=== PATIENT | male | born 1935 | race Caucasian/White ===

== ENCOUNTER 2017-01-07 17:56 | Inpatient (IN) | payer OTHER ==
[~2017-01-07] VITALS: Ht 177.8 cm; Wt 95.0 kg
[~2017-01-07 17:56] MED LIST: CALC-354 PO; CARV12.52 PO; FURO20TA PO; GLC/500 PO; LISI-461 PO; POTA1CAP2 PO
[2017-01-07 18:23] LABS: BASO % 0.2 %; BASO ABS # 0.01 K/uL (0-0.2); COMPLETE YES; EOS % 3.1 %; HEMATOCRIT 45.9 % (42-52); IG% 0.4 %; LYMPH % 28.8 %; LYMPH ABS # 1.57 K/uL (1.2-3.4); MEAN CELL VOLUME 84.2 fL (80-100); MEAN CORPUSCULAR HEMOGLOBIN 29.4 pg (25-34); MEAN CORPUSCULAR HGB CONC 34.9 g/dl (32-36); MEAN PLATELET VOLUME 9.1 fL (7.4-10.4); MONO % 8.1 %; NEUT % 59.4 %; PLATELET COUNT 170 K/uL (130-400); RED BLOOD COUNT 5.45 M/uL (4.7-6.1); WHITE BLOOD COUNT 5.46 K/uL (4.8-10.8)
[2017-01-07 18:33] LABS: INR 0.9 (0.9-1.1); PARTIAL THROMBOPLASTIN RATIO 1.1; PROTHROMBIN TIME (PATIENT) 9.9 SECONDS (9.0-12.0)
[2017-01-07] MEDS ORDERED: LEVO25TA PO (18:36)
[2017-01-07] MEDS ORDERED: CARV25TA2 PO (18:36)
[2017-01-07] MEDS ORDERED: LISI-788 PO (18:36)
[2017-01-07] MEDS ORDERED: GLC/500 PO (18:37)
--- NOTE | 2017-01-07 18:39 | DIAGNOSTIC IMAGING REPORT ---
HEAD CT NONCONTRAST CT DOSE: 601.98 mGy.cm HISTORY: Mental status change EVALUATE ALTERED MENTAL STATUS/WEAKNESS TECHNIQUE: Multiaxial CT images of the head were performed without the use of intravenous contrast. Comparison: None. Findings: The paranasal sinuses and mastoid air cells are clear. The calvarium and skull base are intact. The ventricles and sulci are within normal limits. There is no mass, hematoma, midline shift, or acute infarct. Moderate chronic small vessel changes identified in the periventricular deep white matter regions. Impression: Age-related chronic small vessel change. No acute process. Electronically signed by: Jose Wadsworth M.D. 01/07/2017 6:37 PM Dictated Date/Time: 01/07/2017 6:36 PM
[2017-01-07 18:56] LABS: ALT/SGPT 24 U/L (12-78); AST/SGOT 17 U/L (15-37); BLOOD UREA NITROGEN 19 mg/dl (7-18); CALCIUM 9.5 mg/dl (8.5-10.1); CARBON DIOXIDE 29 mmol/L (21-32); CHLORIDE 100 mmol/L (98-107); GLUCOSE 184 mg/dl (70-99); MAGNESIUM 2.1 mg/dl (1.8-2.4); PHOSPHORUS 2.9 mg/dl (2.5-4.9); POTASSIUM 4.1 mmol/L (3.5-5.1)
[2017-01-07 18:57] LABS: ALKALINE PHOSPHATASE 86 U/L (45-117); BUN/CREATININE RATIO 17.4 (10-20); SODIUM 141 mmol/L (136-145)
[2017-01-07 18:58] LABS: URINE APPEARANCE CLEAR (CLEAR); URINE BILIRUBIN NEG (NEG); URINE COLOR YELLOW; URINE NITRITE NEG (NEG); URINE PH 5.5 (4.5-7.5); URINE SPECIFIC GRAVITY 1.018 (1.000-1.030); UROBILINOGEN NEG (NEG)
[2017-01-07 19:02] LABS: MANUAL MICROSCOPIC REQUIRED? NO; REVIEW REQ? NO
--- NOTE | 2017-01-07 19:07 | DIAGNOSTIC IMAGING REPORT ---
CHEST ONE VIEW PORTABLE CLINICAL HISTORY: EVALUATE ALTERED MENTAL STATUS/WEAKNESS dyspnea COMPARISON STUDY: 08/15/2015 FINDINGS: Bilateral pleural plaques and/or nodularity considered stable compared to the prior exam. There are no new or interval findings. There are findings of mild stable cardia megaly. Diaphragms smooth. IMPRESSION: Chronic change. Mild stable cardia megaly. No acute intrathoracic process. Electronically signed by: Jose Wadsworth M.D. 01/07/2017 7:06 PM Dictated Date/Time: 01/07/2017 7:05 PM
[2017-01-07 19:21] LABS: BENZODIAZEPINE, URINE NEG (NEG); COCAINE,URINE NEG (NEG); PHENCYCLIDINE, URINE NEG (NEG)
[2017-01-07] MEDS ORDERED: CARV12.52 PO (19:43)
[2017-01-07] MEDS ORDERED: LISI10TA PO (19:48)
[2017-01-07] MEDS ORDERED: LISI-725 PO (19:48)
--- NOTE | 2017-01-07 20:43 | EMERGENCY ROOM VISIT NOTE ---
History Report prepared by Amanda: Amy North Under the Supervision of: Dr. Robert Mello D.O. First contact with patient: 17:59 Chief Complaint: CHEST PAIN Stated Complaint: CHEST PAIN History of Present Illness The patient is a 81 year old male who presents to the Emergency Room with complaints of resolved chest pain that started yesterday. He denies any chest pain currently. The patient came to the ED via ambulance from the [facility]. The patient's family took him to the clinic for increased confusion. The history is limited secondary to the patient's altered mental status. At the clinic, he developed 10/10 chest pain so they called the ambulance. Upon EMS arrival, the chest pain had resolved. The patient was not given anything for the pain at the clinic, but EMS gave him 324 mg of aspirin. The patient is oriented to person and place but not time. The patient states that he experienced upper abdominal pain last night, but he does not have any abdominal pain now. He is also experiencing neck pain. He denies headache, nausea, vomiting, back pain, and weakness in arms. The patient states that he didn't do anything out of the ordinary last night. The onsite case manager reports that the patient's family stressed that he cannot have a urinary catheterization due to a urinary pump. Source of History: patient History Limited By: AMS Onset: yesterday Position: chest Timing: resolved Associated Symptoms: + abdominal pain, + neck pain, No back pain, No headache, No nausea, No vomiting, No weakness Review of Systems See HPI for pertinent positives & negatives. A total of 10 systems reviewed and were otherwise negative. Past Medical & Surgical Medical Problems: (1) Encephalopathy Surgical Problems: (1) History of prostate surgery Family History Diabetes mellitus Heart disease Hypertension Social History Smoking Status: Never Smoker Marital Status: Housing Status: lives with family Current/Historical Medications Scheduled Aspirin (Aspirin Chewable), 81 MG PO DAILY Carvedilol (Coreg), 12.5 MG PO BID Dorzolamide Hcl (Trusopt Oph), 1 DROPS OPB BID Fish Oil ([place]-3), 1 CAP PO DAILY Latanoprost (Xalatan 0.005% Oph T[place]ha), 1 DROPS OPB HS Levothyroxine Sodium (Synthroid), 25 MCG PO DAILY Lisinopril (Prinivil), 10 MG PO HS Lisinopril (Zestril), 20 MG PO DAILY Metformin Hcl (Glucophage), 500 MG PO BID Omeprazole (Prilosec), 20 MG PO DAILY Simvastatin (Zocor), 20 MG PO QPM Sucralfate (Sucralfate), 1 GM PO ACHS Allergies Coded Allergies: No Known Allergies (Unverified , 08/15/15) Physical Exam Vital Signs Date Time Temp Pulse Resp B/P Pulse Ox O2 Delivery O2 Flow Rate FiO2 01/07/17 20:54 56 18 160/79 95 Room Air 01/07/17 19:45 58 18 166/85 95 Room Air 01/07/17 18:45 59 18 169/82 96 Room Air 01/07/17 18:45 62 01/07/17 18:11 95 Room Air 01/07/17 18:11 95 Room Air 01/07/17 18:05 36.9 78 15 207/113 95 Room Air 01/07/17 18:05 95 Room Air Physical Exam GENERAL: Patient is awake, alert, and in no acute distress. Patient is resting comfortably and showing no signs of anxiety. Patient does not appear to be in pain. EYES: The conjunctivae are clear. The pupils are round and reactive. EARS, NOSE, MOUTH AND THROAT: The nose is without any evidence of any deformity. Mucous membranes are moist tongue is midline NECK: The neck is nontender and supple. RESPIRATORY: Breath sounds are diminished in right lung field. Rales at right base noted. No tachypnea or conversational dyspnea noted. CARDIOVASCULAR: Regular rate and rhythm noted there no murmurs rubs or gallops normal S1 normal S2 GASTROINTESTINAL: The abdomen is soft. Bowel sounds are present in all quadrants. Abdomen is nontender MUSCULOSKELETAL/EXTREMITIES: There is no evidence of gross deformity full range of motion is noted in the hips and shoulders SKIN: Trace pedal edema bilaterally. There is no obvious evidence of any rash. There are no petechiae, pallor or cyanosis noted. NEUROLOGIC: Patient is awake and oriented to person and place, but not time or situation. Confused about events of the last 24 hours. Strength is symmetric. No facial droop or drift appreciated. Medical Decision & Procedures ER Provider Diagnostic Interpretation: Radiology results as stated below per my review and radiologist interpretation: CHEST ONE VIEW PORTABLE IMPRESSION: Chronic change. Mild stable cardia megaly. No acute intrathoracic process. Electronically signed by: Jose Wadsworth M.D. 01/07/2017 7:06 PM Dictated Date/Time: 01/07/2017 7:[address] NONCONTRAST Impression: Age-related chronic small vessel change. No acute process. Electronically signed by: Jsoe Wadsworth M.D. 01/07/2017 6:37 PM Dictated Date/Time: 01/07/2017 6:36 PM Laboratory Results Test 01/07/17 17:45 01/07/17 18:39 Prothrombin Time 9.9 SECONDS (9.0-12.0) Prothromb Time International Ratio 0.9 (0.9-1.1) Activated Partial Thromboplast Time 28.0 SECONDS (21.0-31.0) Partial Thromboplastin Ratio 1.1 Phosphorus Level 2.9 mg/dl (2.5-4.9) Magnesium Level 2.1 mg/dl (1.8-2.4) Total Bilirubin 1.0 mg/dl (0.2-1) Direct Bilirubin mg/dl (0-0.2) Aspartate Amino Transf (AST/SGOT) 17 U/L (15-37) Alanine Aminotransferase (ALT/SGPT) 24 U/L (12-78) Alkaline Phosphatase 86 U/L (45-117) Total Creatine Kinase 38 U/L (39-308) Creatine Kinase MB 0.7 ng/ml (0.5-3.6) Creatine Kinase MB Ratio 2.0 (0-3.0) Troponin I < 0.015 ng/ml (0-0.045) Pro-B-Type Natriuretic Peptide 89 pg/ml (0-1800) Total Protein 8.0 gm/dl (6.4-8.2) Albumin 3.9 gm/dl (3.4-5.0) Lipase 145 U/L (73-393) Thyroid Stimulating Hormone (TSH) 2.570 uIu/ml (0.300-4.500) Free Thyroxine 1.13 ng/dl (0.80-1.60) Chemistry Specimen Hemolysis Lyme Disease IgG Antibody NEG (NEG) Lyme Disease IgM Antibody NEG (NEG) Urine Color YELLOW Urine Appearance CLEAR (CLEAR) Urine pH 5.5 (4.5-7.5) Urine Specific [place] 1.018 (1.000-1.030) Urine Protein NEG (NEG) Urine Glucose (UA) TRACE (NEG) Urine Ketones NEG (NEG) Urine Occult Blood NEG (NEG) Urine Nitrite NEG (NEG) Urine Bilirubin NEG (NEG) Urine Urobilinogen NEG (NEG) Urine Leukocyte Esterase NEG (NEG) Urine Opiates Screen NEG (NEG) Urine Methadone, Qualitative NEG (NEG) Urine Barbiturates NEG (NEG) Urine Phencyclidine (PCP) Level NEG (NEG) Ur Amphetamine/Methamphetamine NEG (NEG) MDMA (Ecstasy) Screen NEG (NEG) Urine Benzodiazepines Screen NEG (NEG) Urine Cocaine Metabolite NEG (NEG) Urine Marijuana (THC) NEG (NEG) Laboratory results per my review. ECG Indication: altered mental status Rate (beats per minute): 68 Rhythm: normal sinus Findings: no ectopy, other (no acute ST segment abnormalities) Comparison ECG Date: 08/15/2015 Change: no significant change ED Course 1800: The patient was evaluated in room A3. A complete history and physical examination were performed. 1931: Upon reevaluation, the patient is resting comfortably. I discussed results and treatment plan with the patient and his family. They verbalize agreement and understanding. The patient will be evaluated for further management and care. 1940: I discussed the patient's case with Dr. Linda Cespedes. The patient will be evaluated for further management. Medical Decision Prior records/ancillary studies reviewed and summarized above. Nursing notes reviewed. Additional history obtained from EMS. The patient's history was concerning for altered mental status. Differential diagnosis: Etiologies such as metabolic, infection, hypo/hyperglycemia, electrolyte abnormalities, cardiac sources, intracerebral event, toxicologic, neurologic, as well as others were entertained. The patient is an 81-year-old male who presented to the emergency department with multiple complaints. His significant other presented to the emergency Department with him and provided history. The patient appears to be having decreasing mental status recently and increasing confusion. Patient has not had any focal neurologic deficits but could not remember the date. The patient was reevaluated multiple times. The patient was also having chest pain recently. I discussed the patient's laboratory and radiographic studies with him and his significant other. I also discussed his case with the on-call [facility] hospitalist group. They have agreed to evaluate the patient in emergency department for further management and disposition. Consults Time Called: 1936 Consulting Physician: Dr. Linda Cespedes Returned Call: 1940 I discussed the patient's case with Dr. Linda Cespedes. The patient will be evaluated for further management. Impression Primary Impression: Altered mental status Additional Impressions: Confusion Disorientation Substernal chest pain Scribe Attestation The scribe's documentation has been prepared under my direction and personally reviewed by me in its entirety. I confirm that the note above accurately reflects all work, treatment, procedures, and medical decision making performed by me. Departure Information Dispostion Being Evaluated By Hospitalist Referrals Marco Kim M.D. (PCP) Patient Instructions My [facility] Problem Qualifiers Primary Impression: Altered mental status Altered mental status type: unspecified Qualified Codes: R41.82 - Altered mental status, unspecified
[2017-01-07] MEDS ORDERED: CLOPIDOGREL BISULFATE 75 MG TAB PO STA (21:40)
[2017-01-07] MEDS ORDERED: GLUCAGON FOR INJ 1 MG VIAL SQ PRN (21:45)
[2017-01-07] MEDS ORDERED: PHARMACIST DISCHARGE MED REC CONSULT PRN (21:45)
[2017-01-07] MEDS ORDERED: ONDANSETRON INJ 2 MG/ML 2 ML VIAL IV PRN (21:45)
[2017-01-07] MEDS ORDERED: ACETAMINOPHEN 325 MG TAB PO PRN (21:45)
[2017-01-07] MEDS ORDERED: SODIUM CHLORIDE 0.45% 1000ML 1,000 ML IV ONE (21:45)
[2017-01-07] MEDS ORDERED: GLUCOSE 40% GEL 15 GM TUBE PO PRN (21:45)
[2017-01-07] MEDS ORDERED: MoRPHine SULFATE 4 MG/ML 1 ML CARP\\VIAL IV PRN (21:45)
[2017-01-07] MEDS ORDERED: TRAMADOL HCL 50 MG TAB PO PRN (21:45)
[2017-01-07] MEDS ORDERED: NITROGLYCERIN 0.4 MG SL PER TAB CHARGE SL PRN (21:45)
[2017-01-07] MEDS ORDERED: DEXTROSE 50% 50 ML SYR IV PRN (21:45)
[2017-01-07] MEDS ORDERED: GLUCOSE 10 TABS/TUBE PO PRN (21:45)
[2017-01-07 22:20] LABS: LYME DISEASE AB IGG NEG (NEG); LYME DISEASE AB IGM NEG (NEG)
[2017-01-07] MEDS ORDERED: ASPCH81X PO (22:33)
[2017-01-07] MEDS ORDERED: SIMV20TA2 PO (22:33)
[2017-01-07] MEDS ORDERED: LATA0.009 OPB (22:33)
[2017-01-07] MEDS ORDERED: DORZ2SOL17 OPB (22:33)
[2017-01-07] MEDS ORDERED: SUCR1TAB PO (22:33)
[2017-01-07] MEDS ORDERED: OMEG10007 PO (22:33)
[2017-01-07] MEDS ORDERED: PRLSR20 PO (22:33)
[2017-01-07 22:46] VITALS: BP_SYST 205; BP_SYST 208; BP_DIAS 110; BP_DIAS 74; PULSE 53; TEMP 36.8; O2SAT 98; Ht 177.8 cm; Wt 95.0 kg
[2017-01-07] MEDS ORDERED: LISINOPRIL 2.5 MG TAB PO ONE (23:15)
[2017-01-07] MEDS: ENOXAPARIN 40 MG/0.4 ML SYR SC SCH (23:47)
[2017-01-08] VITALS (9 sets, daily range): BP systolic 137–172; BP diastolic 74–98; PULSE 57–91; TEMP 36.4–36.9; O2SAT 94–98
[2017-01-08] MEDS: LEVOTHYROXINE 25 MCG TAB PO SCH (05:23)
[2017-01-08] MEDS: SUCRALFATE 1 GM TAB PO SCH ×4 (05:24→21:38)
--- NOTE | 2017-01-08 07:18 | HISTORY & PHYSICAL EXAMINATION ---
DATE OF ADMISSION: 01/07/2017 PRIMARY CARE DOCTOR: Dr. Kim. History obtained from patient's records, patient's family. Limited hx obtained from px secondary to some confusion. CHIEF COMPLAINT: Confusion as per records. HISTORY OF PRESENT ILLNESS: Medical history significant for history of hypertension, DM2 on oral meds, rheumatic fever as per records, BPH status post surgery/device placement. As per , episodic forgetfulness, slowness after last prostate surgery 2016 leg dragging at times. As per records yesterday, patient noted upper abdominal pain, transient symptoms. Denies headache, nausea, vomiting symptoms. Patient noted to be disoriented this morning, slow to answer. Transient subternal achy pain symptoms. non pleuritic no cough sx Denies bladder sx. MEDICAL HISTORY: As above. SURGERIES: urologic procedures (Portillo catheter contraindicated as per ) HOME MEDICATIONS: Includes aspirin, carvedilol, dorzolamide, fish oil, levothyroxine, lisinopril, metformin, omeprazole, simvastatin FAMILY HISTORY: Could not be obtained. PERSONAL AND SOCIAL HISTORY: past tobacco abuse, chronic intake of alcoholic beverages. REVIEW OF SYSTEMS: Could not be reliably obtained. PHYSICAL EXAMINATION: VITAL SIGNS: Blood pressure was noted to be 180/80, pulse rate 66, RR 20, temperature 36.9, sats 90 on room air. GENERAL: Noted to be comfortable, slightly anxious, disoriented, slow speech/ hesitancy obese. SKIN: Normal color. HEENT: [place] palpebral conjunctivae. Dry mucosa. NECK: Short neck. LUNGS: Decreased breath sounds. HEART: Regular rate and rhythm. ABDOMEN: Soft. EXTREMITIES: No edema. no tenderness NEUROLOGIC: No gross focality except for hesitation, trouble finishing sentences ?aphasia gait and stance not assessed LABS: Hemoglobin was noted to be 16, white cell 5.4, platelets 170. Sodium 141, potassium 4.1, chloride 129, BUN 90, creatinine 1.1, glucose 174. Troponin 0.15. EKG showed rate 65, NSR, LAD, LAFB CXR cardiomegaly, chronic changes UA clean. CT head, no acute pathology. chronic small vessel change HgA1c 12/2016 was 6.4 ASSESSMENT: 1. Encephalopathy, slowed speech episodic forgetfulness/cognitive impairment over the last few months more pronounced sx yesterday CVA ? ASA failure vs beginning dementia 2. HTN urgency 2 to above 3. transient cp likely 2 to HTn urgency 4. BPH sp surgery 5. DM2 on oral meds, well controlled as of recent Hg A1c 6. hyperlipidemia on statin tx 7. past tobacco abuse. PLAN: PCU, neurochecks Plavix for now for poss ASA failure until stroke ruled out MRI of the brain. Further management pending MRI results. permissive HTN until acute CVA ruled out. Neuro consult as per request RE encephalopathy TTE re cp ISS BG goal 140-80 PT, OT eval. DVT prophylaxis. Lovenox subQ. Full code. Px requesting for updates from providers, Mrs. Aundrea Ray (contact #[phone]) ALINE
[2017-01-08] MEDS: INSULIN ASPART 100 UNITS/ML 3 ML PEN SC SCH ×4 (07:37→21:36)
[2017-01-08] MEDS: PANTOprazole SOD 40 MG TAB PO SCH (07:55)
[2017-01-08] MEDS: CLOPIDOGREL BISULFATE 75 MG TAB PO SCH (07:56)
[2017-01-08] MEDS: DORZOLAMIDE HCL 2% OPH SOLN 10 ML BTL OPB SCH ×2 (07:56→21:38)
[2017-01-08 08:05] LABS: BASO % 0.2 %; BASO ABS # 0.01 K/uL (0-0.2); COMPLETE YES; EOS % 2.7 %; HEMATOCRIT 44.4 % (42-52); IG% 0.2 %; LYMPH % 25.9 %; LYMPH ABS # 1.34 K/uL (1.2-3.4); MEAN CELL VOLUME 83.6 fL (80-100); MEAN CORPUSCULAR HEMOGLOBIN 29.2 pg (25-34); MEAN CORPUSCULAR HGB CONC 34.9 g/dl (32-36); MEAN PLATELET VOLUME 9.2 fL (7.4-10.4); MONO % 8.1 %; NEUT % 62.9 %; PLATELET COUNT 134 K/uL (130-400); RED BLOOD COUNT 5.31 M/uL (4.7-6.1); WHITE BLOOD COUNT 5.17 K/uL (4.8-10.8)
[2017-01-08 08:31] LABS: BUN/CREATININE RATIO 18.6 (10-20); CALCIUM 8.9 mg/dl (8.5-10.1); CREATININE 0.97 mg/dl (0.60-1.40); POTASSIUM 3.8 mmol/L (3.5-5.1)
[2017-01-08 08:36] LABS: CHOLESTEROL/HDL RATIO 4.6
--- NOTE | 2017-01-08 11:48 | DIAGNOSTIC IMAGING REPORT ---
MRI OF THE BRAIN WITHOUT AND WITH IV CONTRAST CLINICAL HISTORY: ams mental status change COMPARISON STUDY: No previous studies for comparison. TECHNIQUE: Utilizing a 1.5 Opal magnet and dedicated coil, multiplanar, multiecho imaging of the brain was performed pre and postcontrast administration. IV administration of 9 mL of Gadavist contrast was uneventful. FINDINGS: Diffusion-weighted images show a small acute left basal ganglia infarct. There are findings of mild cerebellar as well as cerebral atrophy considered age-related. Sella and parasellar regions are unremarkable. Internal artery canals are symmetric. Postcontrast images are considered negative for an enhancing lesion. There are findings of mild chronic small vessel change of aging. IMPRESSION: 1. Small acute infarct left basal ganglia. 2. Chronic small vessel change of aging. 3. Mild atrophy Electronically signed by: Jose Wadsworth M.D. 01/08/2017 11:46 AM Dictated Date/Time: 01/08/2017 11:42 AM
--- NOTE | 2017-01-08 15:09 | Neurology Consultation ---
Neurology Consultation Date of Consultation: Jan 08, 2017. Attending Physician: Harpreet Sena MD Primary Care Physician: Marco Kim M.D. Reason for Consultation: forgetfulness episodic confusion History of Present Illness Source: patient, family, spouse Hansel is an 81 year old male who has a PMH HTN, DM 2, BPH with post surgical implantment of a urinary assistive device. He states he knows he is just not right. He has had forgetfulness, slowness after last prostate surgery September of 2016 and has been slowed since then. She thought it was just the anaethesia but it has continued. He knows he is in a hospital in [place] but does not know which one. He can't really tell why he is in the hospital but states his HTN was not well controlled and his confusion was somewhat worse. denies CP, SOB, abdominal, pain, weakness, numbness tingling, vision changes, falls. states he was a long time smoker and EtOH abuse but has not done either for some time. Past Medical/Surgical History Medical Problems: (1) Altered mental status Status: Acute (2) Confusion Status: Acute (3) Disorientation Status: Acute (4) Substernal chest pain Status: Acute Social History Marital Status: Housing Status: lives with family Allergies Coded Allergies: No Known Allergies (Unverified , 08/15/15) Current Inpatient Medications Current Inpatient Medications Medications (Trade) Dose Ordered Sig/Caryl Route Start Time Stop Time Status Last Admin Dose Admin Clopidogrel Bisulfate (plAVix TAB) 75 mg QAM PO 01/08/17 09:00 02/07/17 08:59 01/08/17 07:56 75 MG Enoxaparin Sodium (Lovenox Inj) 40 mg Q24H SC 01/07/17 22:00 02/06/17 21:59 01/07/17 23:47 40 MG Acetaminophen (Tylenol Tab) 650 mg Q4H PRN PO 01/07/17 21:45 02/06/17 21:44 Nitroglycerin (Nitrostat Tab) 0.4 mg UD PRN SL 01/07/17 21:45 02/06/17 21:44 Insulin Aspart (novoLOG ASPART) SLIDING SCALE If C... ACHS SC 01/08/17 07:00 02/07/17 06:59 Glucose (Glucose 40% Gel) 15-30 GRAMS 15 GRAMS... UD PRN PO 01/07/17 21:45 02/06/17 21:44 Glucose (Glucose Chew Tab) 4-8 Tablets 4 Tabl... UD PRN PO 01/07/17 21:45 02/06/17 21:44 Dextrose (Dextrose 50% 50ML Syringe) 25-50ML OF 50% DW IV FOR... UD PRN IV 01/07/17 21:45 02/06/17 21:44 Glucagon (Glucagon Inj) 1 mg UD PRN SQ 01/07/17 21:45 02/06/17 21:44 Miscellaneous Information (Pharmacist Discharge Med Rec Consult) 1 ea UD PRN N/A 01/07/17 21:45 02/06/17 21:44 Dorzolamide HCl (Trusopt 2% Oph Soln) 1 drops BID OPB 01/08/17 09:00 02/07/17 08:59 01/08/17 07:56 1 DROPS Latanoprost (Xalatan Oph Soln) 1 drops HS OPB 01/08/17 21:00 02/07/17 20:59 Levothyroxine Sodium (Synthroid Tab) 25 mcg DAILYBB PO 01/08/17 06:00 02/07/17 06:59 01/08/17 05:23 25 MCG Sucralfate (Carafate Tab) 1 gm ACHS PO 01/08/17 07:00 02/07/17 06:59 01/08/17 11:41 1 GM Pantoprazole Sodium (Protonix Tab) 40 mg QAM PO 01/08/17 09:00 02/07/17 08:59 01/08/17 07:55 40 MG Ondansetron HCl (Zofran Inj) 4 mg Q6H PRN IV 01/07/17 21:45 02/06/17 21:44 Tramadol HCl (Ultram Tab) 25 mg Q6H PRN PO 01/07/17 21:45 02/06/17 21:44 Morphine Sulfate (MoRPHine SULFATE INJ) 4 mg Q3H PRN IV 01/07/17 21:45 01/21/17 21:44 Lisinopril (Zestril Tab) 2.5 mg HS PO 01/08/17 21:00 02/07/17 20:59 Physical Exam Vital Signs (Past 24 Hrs): Date Time Temp Pulse Resp B/P Pulse Ox O2 Delivery O2 Flow Rate FiO2 01/08/17 12:00 Room Air 01/08/17 11:41 36.9 85 15 172/98 96 Room Air 01/08/17 08:00 Room Air 01/08/17 07:31 36.4 58 18 162/91 95 Room Air 01/08/17 04:09 98 Room Air 01/08/17 04:00 36.5 58 20 168/74 97 Room Air 01/08/17 00:00 36.4 57 20 171/78 98 Room Air 01/08/17 00:00 98 Room Air 01/07/17 22:46 36.8 53 18 208/74 98 Room Air 205/110 01/07/17 21:56 54 18 171/94 97 Room Air 01/07/17 20:54 56 18 160/79 95 Room Air 01/07/17 19:45 58 18 166/85 95 Room Air 01/07/17 18:45 59 18 169/82 96 Room Air 01/07/17 18:45 62 01/07/17 18:11 95 Room Air 01/07/17 18:11 95 Room Air 01/07/17 18:05 36.9 78 15 207/113 95 Room Air 01/07/17 18:05 95 Room Air Physical Exam: Constitutional: appearance nourished, healthy and obese Ears, Nose, Mouth and Throat: mucous membranes moist, no injection and skin normal, eyes normal Cardiovascular: normal S-1 and S-2 and regular rate and rhythm Respiratory: rhonchi bilaterally Musculoskeletal: non pitting LE edema Skin: no stigmata of neurocutaneous disease noted and normal and intact Eyes: extraocular muscles intact (EOMI) and pupils equal, round and reactive to light (PERRL) NEUROLOGIC EXAMINATION: Mental status: Alert and interactive Oriented hospital in [place] can not state year, president or previous occupation, can close eyes stick out tongue point to ceiling with right hand, can state No ifs ands or buts Oriented to person, know his and daughter in room Speech fluent with no evidence of aphasia Cranial Nerves smile eye brow raise symmetric, tongue midline Reflexes: Deep tendon reflexes were symmetrical and graded 2/5. Plantar responses were flexor. Sensory: no deficit to vibration, cool touch, GT proprioception in tact Coordination: finger to nose without bi pass Gait/Stance: lying in bed Motor: Negative for pronator drift of out stretched arms with eyes closed. Strength: biceps triceps hand casing in line setter 5/5 bilaterally, hip flex plantar flex ext 5/5 bilaterally Laboratory Results Past 24 Hours: 01/08/17 07:25 Red Blood Count 5.31, Mean Corpuscular Volume 83.6, Mean Corpuscular Hemoglobin 29.2, Mean Corpuscular Hemoglobin Concent 34.9, Mean Platelet Volume 9.2, Neutrophils (%) (Auto) 62.9, Lymphocytes (%) (Auto) 25.9, Monocytes (%) (Auto) 8.1, Eosinophils (%) (Auto) 2.7, Basophils (%) (Auto) 0.2, Neutrophils # (Auto) 3.25, Lymphocytes # (Auto) 1.34, Monocytes # (Auto) 0.42, Eosinophils # (Auto) 0.14, Basophils # (Auto) 0.01 01/08/17 07:25 Test 01/07/17 17:45 01/07/17 18:39 01/08/17 07:25 01/08/17 11:35 Prothrombin Time 9.9 SECONDS (9.0-12.0) Prothromb Time International Ratio 0.9 (0.9-1.1) Activated Partial Thromboplast Time 28.0 SECONDS (21.0-31.0) Partial Thromboplastin Ratio 1.1 Phosphorus Level 2.9 mg/dl (2.5-4.9) Magnesium Level 2.1 mg/dl (1.8-2.4) Total Bilirubin 1.0 mg/dl (0.2-1) Direct Bilirubin mg/dl (0-0.2) Aspartate Amino Transf (AST/SGOT) 17 U/L (15-37) Alanine Aminotransferase (ALT/SGPT) 24 U/L (12-78) Alkaline Phosphatase 86 U/L (45-117) Total Creatine Kinase 38 U/L (39-308) Creatine Kinase MB 0.7 ng/ml (0.5-3.6) Creatine Kinase MB Ratio 2.0 (0-3.0) Troponin I < 0.015 ng/ml (0-0.045) Pro-B-Type Natriuretic Peptide 89 pg/ml (0-1800) Total Protein 8.0 gm/dl (6.4-8.2) Albumin 3.9 gm/dl (3.4-5.0) Lipase 145 U/L (73-393) Thyroid Stimulating Hormone (TSH) 2.570 uIu/ml (0.300-4.500) Free Thyroxine 1.13 ng/dl (0.80-1.60) Chemistry Specimen Hemolysis Lyme Disease IgG Antibody NEG (NEG) Lyme Disease IgM Antibody NEG (NEG) Urine Color YELLOW Urine Appearance CLEAR (CLEAR) Urine pH 5.5 (4.5-7.5) Urine Specific [place] 1.018 (1.000-1.030) Urine Protein NEG (NEG) Urine Glucose (UA) TRACE (NEG) Urine Ketones NEG (NEG) Urine Occult Blood NEG (NEG) Urine Nitrite NEG (NEG) Urine Bilirubin NEG (NEG) Urine Urobilinogen NEG (NEG) Urine Leukocyte Esterase NEG (NEG) Urine Opiates Screen NEG (NEG) Urine Methadone, Qualitative NEG (NEG) Urine Barbiturates NEG (NEG) Urine Phencyclidine (PCP) Level NEG (NEG) Ur Amphetamine/Methamphetamine NEG (NEG) MDMA (Ecstasy) Screen NEG (NEG) Urine Benzodiazepines Screen NEG (NEG) Urine Cocaine Metabolite NEG (NEG) Urine Marijuana (THC) NEG (NEG) White Blood Count 5.17 K/uL (4.8-10.8) Red Blood Count 5.31 M/uL (4.7-6.1) Hemoglobin 15.5 g/dL (14.0-18.0) Hematocrit 44.4 % (42-52) Mean Corpuscular Volume 83.6 fL (80-100) Mean Corpuscular Hemoglobin 29.2 pg (25-34) Mean Corpuscular Hemoglobin Concent 34.9 g/dl (32-36) Platelet Count 134 K/uL (130-400) Mean Platelet Volume 9.2 fL (7.4-10.4) Neutrophils (%) (Auto) 62.9 % Lymphocytes (%) (Auto) 25.9 % Monocytes (%) (Auto) 8.1 % Eosinophils (%) (Auto) 2.7 % Basophils (%) (Auto) 0.2 % Neutrophils # (Auto) 3.25 K/uL (1.4-6.5) Lymphocytes # (Auto) 1.34 K/uL (1.2-3.4) Monocytes # (Auto) 0.42 K/uL (0.11-0.59) Eosinophils # (Auto) 0.14 K/uL (0-0.5) Basophils # (Auto) 0.01 K/uL (0-0.2) RDW Standard Deviation 42.5 fL (36.4-46.3) RDW Coefficient of Variation 14.0 % (11.5-14.5) Immature Granulocyte % (Auto) 0.2 % Immature Granulocyte # (Auto) 0.01 K/uL (0.00-0.02) Anion Gap 9.0 mmol/L (3-11) Est Creatinine Clear Calc Drug Dose 69.5 ml/min Estimated GFR () 85.1 Estimated GFR (Non- 73.4 BUN/Creatinine Ratio 18.6 (10-20) Calcium Level 8.9 mg/dl (8.5-10.1) Triglycerides Level 144 mg/dl (0-150) Cholesterol Level 160 mg/dl (0-200) HDL Cholesterol 35 mg/dl LDL Cholesterol, Calculated 96 mg/dl VLDL Cholesterol, Calculated 29 mg/dl Cholesterol/HDL Ratio 4.6 Bedside Glucose 155 mg/dl (70-99) Imaging MRI brain with and without- Small acute infarct left basal ganglia. 2. Chronic small vessel change of aging. 3. Mild atrophy CT head- Age-related chronic small vessel change. No acute process. Impression 81 year old male s/p prostrate surgery and implant with MS change and confusion Plan 1. folate, RPR, B12, lyme and TSH WNL 2. MRI with and without contrast no lesions small acute infarct left basal ganglia. 3. plavix 75 mg and aspirin 81 mg for now 4. blood pressure permissive at this time 5. will need DM, HTN, LDL <70 as out patient well controlled 6. PT/OT speech for discharge needs 7. may be some dementia contributing to the confusion-will better evaluate as an outpatient. 8. further recommendations to follow I have seen and discussed above patient with Dr Nadeem Velasco, neurology Reviewed and patient interviewed and examined low grade confusion onset apparetnly in the fall after the bladder [place] in[place]natation [place] this fall but family admis that some memory issues were present prior here now for chest pain and hypertension he is pleasant but confused and seemingly unconcerned about heis current problems and wants to leave Exam is non focal but ct shows prominent leukoencephalopaty with some lacunes and mild atrophy suspect an underlying mild to moderate vascular dementia with a delerium that did not clear completely last fall. At this point need bp control and the above workup suspect we cannot do an mri with bladder pump and this is to some degee and academic point anyway no rx at this time and the decision re tratment can be determined on an outpatient basis after discharge Nadeem Velasco MD
--- NOTE | 2017-01-08 16:37 | Progress Note ---
Internal Med Progress Note Date of Service: Jan 08, 2017. Provider Documentation: SUBJECTIVE: sitting n the chair comfortably alert and oriented to name and place denies headaches or blurred vision afebrile denies cough or sob denies any pain patient was brought in because of confusion. Family says patient having memory issues for some time but yesterday was more confused than usual. OBJECTIVE: Vital Signs-as noted below Exam: General-alert and awake and oriented x 2. Not in distress ENT-normal hearing Neck-no neck masses Lungs-cta b/l no wheezing or crackles Heart-s1 and s2 heard, regular rate and rhythm no murmurs Abdomen-soft bowel sounds present non tender no distension Extremities-no edema no erythema Neuro-alert and awake oriented x 2 moves extremities non focal Lab data as noted below. ASSESSMENT & PLAN: 1. Encephalopathy, slowed speech episodic forgetfulness/cognitive impairment over the last few months more pronounced sx yesterday MRI shows Small acute infarct left basal ganglia on aspirin added Plavix will add Lipitor to keep ldl<70 neurology on board and appreciate inputs pt/ot 2. HTN urgency 2 to above permissive htn to keep sbp~160 cut back on home Coreg and lisinopril for now 4. BPH sp surgery f/u with urology. No Portillo cath. 5. DM2 on oral meds, well controlled as of recent Hg A1c holding po meds on iss. f/u hba1c. 6. hyperlipidemia on statin tx will increase Zocor to 40mg daily to keel ldl<70. 7. past tobacco abuse. DVT PROPHYLAXIS lovenox DISPOSITION pt/ot social service for d/c planning Vital Signs: Date Time Temp Pulse Resp B/P Pulse Ox O2 Delivery O2 Flow Rate FiO2 01/08/17 15:34 36.9 85 20 165/97 94 Room Air 01/08/17 12:00 Room Air 01/08/17 11:41 36.9 85 15 172/98 96 Room Air 01/08/17 08:00 Room Air 01/08/17 07:31 36.4 58 18 162/91 95 Room Air 01/08/17 04:09 98 Room Air 01/08/17 04:00 36.5 58 20 168/74 97 Room Air 01/08/17 00:00 36.4 57 20 171/78 98 Room Air 01/08/17 00:00 98 Room Air 01/07/17 22:46 36.8 53 18 208/74 98 Room Air 205/110 01/07/17 21:56 54 18 171/94 97 Room Air 01/07/17 20:54 56 18 160/79 95 Room Air 01/07/17 19:45 58 18 166/85 95 Room Air 01/07/17 18:45 59 18 169/82 96 Room Air 01/07/17 18:45 62 01/07/17 18:11 95 Room Air 01/07/17 18:11 95 Room Air 01/07/17 18:05 36.9 78 15 207/113 95 Room Air 01/07/17 18:05 95 Room Air Lab Results: Results Past 24 Hours Test 01/07/17 17:45 01/07/17 18:11 01/07/17 18:39 01/08/17 07:25 Range/Units White Blood Count 5.46 5.17 4.8-10.8 K/uL Red Blood Count 5.45 5.31 4.7-6.1 M/uL Hemoglobin 16.0 15.5 14.0-18.0 g/dL Hematocrit 45.9 44.4 42-52 % Mean Corpuscular Volume 84.2 83.6 80-100 fL Mean Corpuscular Hemoglobin 29.4 29.2 25-34 pg Mean Corpuscular Hemoglobin Concent 34.9 34.9 32-36 g/dl Platelet Count 170 134 130-400 K/uL Mean Platelet Volume 9.1 9.2 7.4-10.4 fL Neutrophils (%) (Auto) 59.4 62.9 % Lymphocytes (%) (Auto) 28.8 25.9 % Monocytes (%) (Auto) 8.1 8.1 % Eosinophils (%) (Auto) 3.1 2.7 % Basophils (%) (Auto) 0.2 0.2 % Neutrophils # (Auto) 3.25 3.25 1.4-6.5 K/uL Lymphocytes # (Auto) 1.57 1.34 1.2-3.4 K/uL Monocytes # (Auto) 0.44 0.42 0.11-0.59 K/uL Eosinophils # (Auto) 0.17 0.14 0-0.5 K/uL Basophils # (Auto) 0.01 0.01 0-0.2 K/uL RDW Standard Deviation 42.6 42.5 36.4-46.3 fL RDW Coefficient of Variation 14.0 14.0 11.5-14.5 % Immature Granulocyte % (Auto) 0.4 0.2 % Immature Granulocyte # (Auto) 0.02 0.01 0.00-0.02 K/uL Prothrombin Time 9.9 9.0-12.0 SECONDS Prothromb Time International Ratio 0.9 0.9-1.1 Activated Partial Thromboplast Time 28.0 21.0-31.0 SECONDS Partial Thromboplastin Ratio 1.1 Sodium Level 141 141 136-145 mmol/L Potassium Level 4.1 3.8 3.5-5.1 mmol/L Chloride Level 100 104 98-107 mmol/L Carbon Dioxide Level 29 28 21-32 mmol/L Anion Gap 12.0 9.0 3-11 mmol/L Blood Urea Nitrogen 19 18 7-18 mg/dl Creatinine 1.10 0.97 0.60-1.40 mg/dl Est Creatinine Clear Calc Drug Dose 63.1 69.5 ml/min Estimated GFR () 73.1 85.1 Estimated GFR (Non- 63.1 73.4 BUN/Creatinine Ratio 17.4 18.6 10-20 Random Glucose 184 134 70-99 mg/dl Calcium Level 9.5 8.9 8.5-10.1 mg/dl Phosphorus Level 2.9 2.5-4.9 mg/dl Magnesium Level 2.1 1.8-2.4 mg/dl Total Bilirubin 1.0 0.2-1 mg/dl Direct Bilirubin 0-0.2 mg/dl Aspartate Amino Transf (AST/SGOT) 17 15-37 U/L Alanine Aminotransferase (ALT/SGPT) 24 12-78 U/L Alkaline Phosphatase 86 45-117 U/L Total Creatine Kinase 38 39-308 U/L Creatine Kinase MB 0.7 0.5-3.6 ng/ml Creatine Kinase MB Ratio 2.0 0-3.0 Troponin I < 0.015 0-0.045 ng/ml Pro-B-Type Natriuretic Peptide 89 0-1800 pg/ml Total Protein 8.0 6.4-8.2 gm/dl Albumin 3.9 3.4-5.0 gm/dl Lipase 145 73-393 U/L Thyroid Stimulating Hormone (TSH) 2.570 0.300-4.500 uIu/ml Free Thyroxine 1.13 0.80-1.60 ng/dl Chemistry Specimen Hemolysis Lyme Disease IgG Antibody NEG NEG Lyme Disease IgM Antibody NEG NEG Bedside Glucose 174 70-99 mg/dl Urine Color YELLOW Urine Appearance CLEAR CLEAR Urine pH 5.5 4.5-7.5 Urine Specific [place] 1.018 1.000-1.030 Urine Protein NEG NEG Urine Glucose (UA) TRACE NEG Urine Ketones NEG NEG Urine Occult Blood NEG NEG Urine Nitrite NEG NEG Urine Bilirubin NEG NEG Urine Urobilinogen NEG NEG Urine Leukocyte Esterase NEG NEG Urine Opiates Screen NEG NEG Urine Methadone, Qualitative NEG NEG Urine Barbiturates NEG NEG Urine Phencyclidine (PCP) Level NEG NEG Ur Amphetamine/Methamphetamine NEG NEG MDMA (Ecstasy) Screen NEG NEG Urine Benzodiazepines Screen NEG NEG Urine Cocaine Metabolite NEG NEG Urine Marijuana (THC) NEG NEG Triglycerides Level 144 0-150 mg/dl Cholesterol Level 160 0-200 mg/dl HDL Cholesterol 35 mg/dl LDL Cholesterol, Calculated 96 mg/dl VLDL Cholesterol, Calculated 29 mg/dl Cholesterol/HDL Ratio 4.6 Test 01/08/17 07:31 01/08/17 11:35 01/08/17 15:29 01/08/17 16:02 Range/Units Bedside Glucose 123 155 109 70-99 mg/dl Vitamin B12 Level 516 211-911 pg/mL Folate 15.79 >5.38 ng/mL
[2017-01-08] MEDS ORDERED: LISINOPRIL 2.5 MG TAB PO SCH (21:00)
[2017-01-08] MEDS: LATANOPROST 0.005% OP SOLN 2.5 ML BTL OPB SCH (21:38)
[2017-01-08] MEDS: CARVEDILOL 3.125 MG TAB PO SCH (21:38)
[2017-01-08] MEDS: ENOXAPARIN 40 MG/0.4 ML SYR SC SCH (21:39)
[2017-01-09] VITALS (7 sets, daily range): BP systolic 132–178; BP diastolic 68–96; PULSE 72–83; TEMP 36.4–36.8; O2SAT 93–95
[2017-01-09] MEDS: LEVOTHYROXINE 25 MCG TAB PO SCH (06:23)
[2017-01-09] MEDS: SUCRALFATE 1 GM TAB PO SCH ×4 (06:24→21:05)
[2017-01-09] MEDS: INSULIN ASPART 100 UNITS/ML 3 ML PEN SC SCH ×4 (06:55→21:11)
[2017-01-09] MEDS: CARVEDILOL 3.125 MG TAB PO SCH (08:01)
[2017-01-09] MEDS: DORZOLAMIDE HCL 2% OPH SOLN 10 ML BTL OPB SCH ×2 (08:02→21:09)
[2017-01-09] MEDS: PANTOprazole SOD 40 MG TAB PO SCH (08:02)
[2017-01-09] MEDS: CLOPIDOGREL BISULFATE 75 MG TAB PO SCH (08:02)
[2017-01-09] MEDS ORDERED: LISINOPRIL 5 MG TAB PO ONE (12:00)
--- NOTE | 2017-01-09 12:03 | Progress Note ---
Internal Med Progress Note Date of Service: Jan 09, 2017. Provider Documentation: SUBJECTIVE: Patient is doing well and eager to be discharged. Patient denies any localized weakness, headaches, nausea, vomiting, abdominal pain,fever, chills Forgetfulness + OBJECTIVE: Vital Signs-as noted below Exam: General-alert and awake and oriented x 2. Not in distress ENT-normal hearing Neck-no neck masses Lungs-cta b/l no wheezing or crackles Heart-s1 and s2 heard, regular rate and rhythm no murmurs Abdomen-soft bowel sounds present non tender no distension Extremities-no edema no erythema Neuro- No focal deficits, Speech clear, AAOX2, Lab data as noted below. ASSESSMENT & PLAN: ASSESSMENT & PLAN: CONFUSION/EPISODIC FORGETFULNESS/COGNITIVE IMPAIRMENT Above symptoms x few months since fall since his bladder pump implantation procedure -Possibly vascular dementia -Mental status- AAOX2 today -Work up- MRI- small acute infarct left basal ganglia; CT head- no acute changes , folate, RPR, B12, lyme and TSH WNL SMALL ACUTE INFARCT, LEFT BASAL GANGLIA Per MRI , came with increased forgetfulness, hypertension -On ASA, Added plavix per neurology, Increased zocor to 40 mg for goal LDL < 70 (LDL- 96) -PT/OT- Home PT/OT HYPERTENSIVE URGENCY- Improved BP BP today high 170s due to decreasing his home med dose -Increased coreg back to 12.5 mg PO BID, Lisinopril up to 10 mg from 30 mg at home -Monitor BPH sp surgery- bladder pump implantation -f/u with urology. No Portillo cath. DM2 on oral meds, well controlled as of recent Hg A1c -Hold PO meds -ISS, Accuchecks, HBA1C- pending HYPERLIPIDEMIA -Increased Zocor to 40mg daily to keel ldl<70. PAST TOBACCO USE DVT PROPHYLAXIS -Lovenox SQ DISPOSITION PT/OT- Home pt/ot discharge home with support from Possible dc today evening after discussion with neurology Discussed with . Vital Signs: Date Time Temp Pulse Resp B/P Pulse Ox O2 Delivery O2 Flow Rate FiO2 01/09/17 11:54 36.5 73 20 178/96 95 Room Air 01/09/17 08:00 Room Air 01/09/17 08:00 36.7 83 16 166/88 95 Room Air 01/09/17 04:15 Room Air 01/09/17 04:00 36.4 72 18 132/68 95 Room Air 01/09/17 00:15 Room Air 01/08/17 23:48 36.5 74 18 142/83 94 Room Air 01/08/17 20:45 94 Room Air 01/08/17 19:50 36.6 91 18 137/81 94 Room Air 01/08/17 16:00 Room Air 01/08/17 15:34 36.9 85 20 165/97 94 Room Air 01/08/17 12:00 Room Air Lab Results: Results Past 24 Hours Test 01/08/17 15:29 01/08/17 16:02 01/08/17 20:14 01/09/17 06:38 Range/Units Vitamin B12 Level 516 211-911 pg/mL Folate 15.79 >5.38 ng/mL Rapid Plasma Reagin NONREACTIVE NONREACT Bedside Glucose 109 185 134 70-99 mg/dl Test 01/09/17 11:20 Range/Units Bedside Glucose 164 70-99 mg/dl
--- NOTE | 2017-01-09 15:55 | DIAGNOSTIC IMAGING REPORT ---
ULTRASOUND OF THE CAROTID ARTERIES CLINICAL HISTORY: Stroke. COMPARISON STUDY: No priors. TECHNIQUE: Real-time, grayscale, and color Doppler sonography of the carotid arteries is performed. Images are reviewed in the transverse and longitudinal planes. FINDINGS: Blood pressure in the right arm measures 165/83 and blood pressure in the left arm measures 179/86. The carotid arteries are patent bilaterally and demonstrate antegrade flow. There is mild echogenic shadowing atherosclerotic plaque seen in the carotid bulbs bilaterally. Normal doppler arterial waveforms are seen throughout. Velocity measurements are listed below. Common carotid peak systolic velocity (cm/sec): RIGHT: 65 LEFT: 81 ICA proximal peak systolic velocity (cm/sec): RIGHT: 62 LEFT: 50 ICA mid peak systolic velocity (cm/sec): RIGHT: 69 LEFT: 52 ICA distal peak systolic velocity (cm/sec): RIGHT: 55 LEFT: 54 ICA/CC peak systolic ratio: RIGHT: 1.1 LEFT: 0.7 Antegrade flow was shown in the vertebral arteries. The external carotid arteries are patent. IMPRESSION: 1. There is no sonographic evidence of hemodynamically significant stenosis in the right or left carotid arterial system. 2. Antegrade flow is shown in the vertebral arteries. Electronically signed by: Sriram Dueñas M.D. 01/09/2017 3:54 PM Dictated Date/Time: 01/09/2017 3:52 PM
--- NOTE | 2017-01-09 16:44 | PROGRESS NOTE ---
DATE: 01/09/2017 DATE: 01/09/2017. Mr. Ray did have an MRI. I thought the bladder pump device would make this contraindicated, but apparently was not and the study did show what appears to be an acute deep basal ganglia infarct on the left which may or may not have anything to do with his presentation. It is very difficult to get a history out of the family. I have the impression that things were beginning to decline cognitively over the past year, worsened definitely when he was in the hospital at [facility] for the bladder procedure back in August and then over the past several days may have gotten worse, but this is not even clear. Certainly an acute infarct in dominant hemisphere even deep in the basal ganglia might produce a change in his overall status and create a decline and at this point there is certainly no reason to consider putting him on Aricept or any of the memory enhancing drugs. I am not sure this pattern is not that of a vascular dementia more than degenerative one. He does have a modest amount leukoencephalopathy on imaging studies in the periventricular region and this combined with his recent event could certainly contribute to cognitive impairment. He has had a duplex which is unremarkable, I do not see a copy of the echo. I do not think this was an embolic events as it is more in a position where small vessel disease is more likely and I agree with treating with aspirin and Plavix for now. Certainly on exam, we do not see anything focal. He is a little dull. He is oriented superficially. He does not engage much in conversation. He is pretty concrete in his thinking, but there is certainly no significant focal motor or sensory deficits. We will keep an eye on him and we will probably see him in the clinic in about 4-6 weeks after discharge to see how his mental status is fairing at that point. Again, it is way too soon to consider putting Aricept in the mix and I am not sure this cognitive impairment issue is going to respond as I am not sure this is on Alzheimer model. Certainly need to give him time to recover from the effects of the acute stroke as well. Johanna Saucedo and I will continue seeing him tomorrow.
[2017-01-09] MEDS ORDERED: LISINOPRIL 10 MG TAB PO SCH (21:00)
[2017-01-09] MEDS ORDERED: LISINOPRIL 5 MG TAB PO SCH (21:00)
[2017-01-09] MEDS: CARVEDILOL 12.5 MG TAB PO SCH (21:05)
[2017-01-09] MEDS: ENOXAPARIN 40 MG/0.4 ML SYR SC SCH (21:09)
[2017-01-09] MEDS: LATANOPROST 0.005% OP SOLN 2.5 ML BTL OPB SCH (21:09)
[2017-01-10 04:18] VITALS: BP 130/82; PULSE 76; TEMP 36.7; O2SAT 93
[2017-01-10 04:20] VITALS: O2SAT 93
[2017-01-10] MEDS: LEVOTHYROXINE 25 MCG TAB PO SCH (06:04)
[2017-01-10] MEDS: SUCRALFATE 1 GM TAB PO SCH ×2 (06:05→11:08)
[2017-01-10] MEDS: INSULIN ASPART 100 UNITS/ML 3 ML PEN SC SCH ×2 (07:00→11:12)
[2017-01-10] MEDS ORDERED: PERFLUTREN LIPID MICROSPHERE (DEFINITY) IV ONE (07:17)
[2017-01-10 07:18] LABS: HEMATOCRIT 43.6 % (42-52); MEAN CELL VOLUME 83.7 fL (80-100); MEAN CORPUSCULAR HEMOGLOBIN 29.6 pg (25-34); MEAN CORPUSCULAR HGB CONC 35.3 g/dl (32-36); MEAN PLATELET VOLUME 9.3 fL (7.4-10.4); PLATELET COUNT 151 K/uL (130-400); RED BLOOD COUNT 5.21 M/uL (4.7-6.1); WHITE BLOOD COUNT 5.34 K/uL (4.8-10.8)
[2017-01-10 07:42] VITALS: BP 148/79; PULSE 71; TEMP 36.8; O2SAT 95
[2017-01-10 08:00] VITALS: O2SAT 95
[2017-01-10] MEDS: PANTOprazole SOD 40 MG TAB PO SCH (08:10)
[2017-01-10] MEDS: DORZOLAMIDE HCL 2% OPH SOLN 10 ML BTL OPB SCH (08:11)
[2017-01-10] MEDS: CARVEDILOL 12.5 MG TAB PO SCH (08:11)
[2017-01-10] MEDS: CLOPIDOGREL BISULFATE 75 MG TAB PO SCH (08:41)
--- NOTE | 2017-01-10 10:24 | Progress Note ---
Internal Med Progress Note Date of Service: Jan 10, 2017. Provider Documentation: SUBJECTIVE: Patient is doing well and eager to be discharged. Patient denies any localized weakness, headaches, nausea, vomiting, abdominal pain,fever, chills Forgetfulness + OBJECTIVE: Vital Signs-as noted below Exam: General-alert and awake and oriented x 2. Not in distress ENT-normal hearing Neck-no neck masses Lungs-cta b/l no wheezing or crackles Heart-s1 and s2 heard, regular rate and rhythm no murmurs Abdomen-soft bowel sounds present non tender no distension Extremities-no edema no erythema Neuro- No focal deficits, Speech clear, AAOX2, Lab data as noted below. ASSESSMENT & PLAN: ASSESSMENT & PLAN: CVA = SMALL ACUTE INFARCT, LEFT BASAL GANGLIA Per MRI results. Came with increased forgetfulness, hypertension. Could be secondary to stroke. -On ASA, Added plavix per neurology, Increased zocor to 40 mg for goal LDL < 70 (LDL- 96) -PT/OT- Home PT/OT CONFUSION/EPISODIC FORGETFULNESS/COGNITIVE IMPAIRMENT Above symptoms x few months since fall since his bladder pump implantation procedure -Likely secondary to stroke. Other possibilities considered per neurology- Vascular dementia, Leucoencephalopathy per imaging could be contributing as well. -Mental status - AAO X 2 today -Work up- MRI- small acute infarct left basal ganglia; CT head- no acute changes , Folate, RPR, B12, lyme and TSH WNL HYPERTENSIVE URGENCY- Improved BP Permissive HTN initially -Increased coreg back to 12.5 mg PO BID yesterday, Lisinopril back up to 30 mg daily. -Monitor closely outpatient BPH sp surgery- bladder pump implantation -f/u with urology. No Portillo cath. DM2 on oral meds, well controlled as of recent Hg A1c -Hold PO meds- okay to restart on discharge -ISS, Accuchecks. Monitor outpatient HYPERLIPIDEMIA -Increased Zocor to 40mg daily to keep ldl<70. PAST TOBACCO USE DVT PROPHYLAXIS -Lovenox SQ DISPOSITION PT/OT- Home pt/ot Ok to discharge home with [facility] today Discussed with . Vital Signs: Date Time Temp Pulse Resp B/P Pulse Ox O2 Delivery O2 Flow Rate FiO2 01/10/17 08:00 95 Room Air 01/10/17 07:42 36.8 71 18 148/79 95 Room Air 01/10/17 04:20 93 Room Air 01/10/17 04:18 36.7 76 18 130/82 93 Room Air 01/10/17 00:15 Room Air 01/09/17 23:53 36.8 81 18 148/85 93 Room Air 01/09/17 20:30 94 Room Air 01/09/17 20:02 36.4 83 16 137/88 94 Room Air 01/09/17 16:34 36.6 76 20 152/89 95 Room Air 01/09/17 16:00 Room Air 01/09/17 12:00 Room Air 01/09/17 11:54 36.5 73 20 178/96 95 Room Air Lab Results: Results Past 24 Hours Test 01/09/17 11:20 01/09/17 16:05 01/09/17 19:44 01/10/17 06:38 Range/Units Bedside Glucose 164 110 181 70-99 mg/dl White Blood Count 5.34 4.8-10.8 K/uL Red Blood Count 5.21 4.7-6.1 M/uL Hemoglobin 15.4 14.0-18.0 g/dL Hematocrit 43.6 42-52 % Mean Corpuscular Volume 83.7 80-100 fL Mean Corpuscular Hemoglobin 29.6 25-34 pg Mean Corpuscular Hemoglobin Concent 35.3 32-36 g/dl RDW Standard Deviation 43.5 36.4-46.3 fL RDW Coefficient of Variation 14.1 11.5-14.5 % Platelet Count 151 130-400 K/uL Mean Platelet Volume 9.3 7.4-10.4 fL Creatinine 1.00 0.60-1.40 mg/dl Est Creatinine Clear Calc Drug Dose 68.2 ml/min Estimated GFR () 82.0 Estimated GFR (Non- 70.8 Test 01/10/17 06:58 Range/Units Bedside Glucose 137 70-99 mg/dl
[2017-01-10] MEDS ORDERED: PLV75 PO (10:26)
[2017-01-10] MEDS ORDERED: SIMV40TA4 PO (10:26)
--- NOTE | 2017-01-10 10:29 | Discharge Instructions ---
Discharge Instructions Date of Service Jan 10, 2017. Admission Reason for Admission: Encephalopathy Discharge Discharge Diagnosis / Problem: 1. Stroke (small in left basal ganglia) 2. Hypertension Discharge Goals Goal(s): Decrease discomfort, Improve function, Increase independence, Improve disease control, Prevent Disease Progression Activity Recommendations Activity Limitations: resume your previous activity (as tolerated prior to admission. Home PT/OT recommended) . Instructions / Follow-Up Instructions / Follow-Up MEDICATION CHANGES: 1. Increase Simvastatin to 40 mg from 20 mg daily due to high cholesterol levels and with new stroke 2. New medication: Plavix 75 mg daily MONITOR BP outpatient FOLLOW UP 1. Dr Lin 01/16/17 at 2:50 PM 2. Follow up with neurology Dr Velasco/Johanna Saucedo PA-C in 4-6 weeks HOME PT/OT recommended DO NOT DRIVE TILL RECOMMENDED BY PHYSICIAN Current Hospital Diet Patient's current hospital diet: Diabetes Type 2 Diet Discharge Diet Recommended Diet: AHA Diet (Heart Healthy), Low Sodium Diet (2gm Na), Diabetes Type 2 Diet Pending Studies Studies pending at discharge: no List of pending studies: Echocardiogram results pending Laboratory Results Lipid Panel Test 01/08/17 07:25 Range/Units Triglycerides Level 144 0-150 mg/dl Cholesterol Level 160 0-200 mg/dl HDL Cholesterol 35 mg/dl Cholesterol/HDL Ratio 4.6 LDL Cholesterol, Calculated 96 mg/dl Medical Emergencies . Who to Call and When: Medical Emergencies: If at any time you feel your situation is an emergency, please call 911 immediately. . Non-Emergent Contact Non-Emergency issues call your: Primary Care Provider . . "Provider Documentation" section prepared by Ria Bess. VTE Core Measure Inpt VTE Proph given/why not?: Enoxaparin (Lovenox)SQ
--- NOTE | 2017-01-10 10:33 | Discharge Summary ---
Discharge Summary Date of Service Jan 10, 2017. Discharge Summary Admission Date: Jan 07, 2017 at 21:27 Discharge Date: Jan 10, 2017 Discharge Disposition: Home with services (with home PT/OT) Principal Diagnosis: 1. Stroke (Small in left basal ganglia) 2. Cognitive impairment, subacute onset likely secondary to above, possible dementia, leucoencephalopathy per imaging 3. Hypertensive urgency Secondary Diagnoses/Problems: 1. BPH S/P Surgery with bladder pump implantation 2. DM-2 3. Hyperlipidemia 4. Physical deconditioning Procedures: Tele monitoring MRI Brain CT head Echo- results pending US carotid duplex CXR EKG PT/OT Consultations: Neurology, Dr Velasco Pending Studies/Follow-Up: Instructions / Follow-Up Instructions / Follow-Up MEDICATION CHANGES: 1. Increase Simvastatin to 40 mg from 20 mg daily due to high cholesterol levels and with new stroke 2. New medication: Plavix 75 mg daily MONITOR BP outpatient Follow up Echo results- done in patient and results are pending FOLLOW UP 1. Dr Lin 01/16/17 at 2:50 PM 2. Follow up with neurology Dr Velasco/Johanna Saucedo PA-C in 4-6 weeks HOME PT/OT recommended Medication Reconciliation New Medications: Simvastatin (Zocor) 40 Mg Tab 1 TAB PO HS for 30 Days, #30 TAB 2 Refills Clopidogrel Bisulfate (Clopidogrel) 75 Mg Tab 75 MG PO QAM for 30 Days, #30 TAB 2 Refills Continued Medications: Aspirin (Aspirin Chewable) 81 Mg Chew 81 MG PO DAILY, TAB Carvedilol (Coreg) 12.5 Mg Tab 12.5 MG PO BID, TAB Dorzolamide Hcl (Trusopt Oph) 2 % Tosha 1 DROPS OPB BID, #10 ML 3 Refills Fish Oil ([place]-3) 1 Ea Cap 1 CAP PO DAILY, CAP Latanoprost (Xalatan 0.005% Oph Tosha) 0.005 % Tosha 1 DROPS OPB HS, ML 3 Refills Levothyroxine Sodium (Synthroid) 25 Mcg Tab 25 MCG PO DAILY for 30 Days, #30 TAB 5 Refills Lisinopril (Prinivil) 10 Mg Tab 10 MG PO HS, TAB Lisinopril (Zestril) 20 Mg Tab 20 MG PO DAILY, TAB take at 1200 Metformin Hcl (Glucophage) 500 Mg Tab 500 MG PO BID, TAB Omeprazole (Prilosec) 20 Mg Capcr 20 MG PO DAILY, CAP Sucralfate (Sucralfate) 1 Gm Tab 1 GM PO ACHS, TAB Discontinued Medications: Simvastatin (Zocor) 20 Mg Tab 20 MG PO QPM, TAB Admission Information HPI (per Admitting provider): HISTORY OF PRESENT ILLNESS: Medical history significant for history of hypertension, DM2 on oral meds, rheumatic fever as per records, BPH status post surgery/device placement. As per , episodic forgetfulness, slowness after last prostate surgery 2016 leg dragging at times. As per records yesterday, patient noted upper abdominal pain, transient symptoms. Denies headache, nausea, vomiting symptoms. Patient noted to be disoriented this morning, slow to answer. Transient subternal achy pain symptoms. non pleuritic no cough sx Denies bladder sx. Hospital Course ASSESSMENT & PLAN: CVA = SMALL ACUTE INFARCT, LEFT BASAL GANGLIA Per MRI results. Came with increased forgetfulness, hypertension. Could be secondary to stroke. -On ASA, Added plavix per neurology, Increased zocor to 40 mg for goal LDL < 70 (LDL- 96) -PT/OT- Home PT/OT -Work up- MRI- small acute infarct left basal ganglia; CT head- no acute changes , Folate, RPR, B12, lyme and TSH WNL, US carotid - no stenosis, Echo- done but pending results- follow up outpatient CONFUSION/EPISODIC FORGETFULNESS/COGNITIVE IMPAIRMENT Above symptoms x few months since fall since his bladder pump implantation procedure -Likely secondary to stroke. Other possibilities considered per neurology- Vascular dementia, Leucoencephalopathy per imaging could be contributing as well. -Mental status - AAO X 2 today -Work up- MRI- small acute infarct left basal ganglia; CT head- no acute changes , Folate, RPR, B12, lyme and TSH WNL, US carotid - no stenosis HYPERTENSIVE URGENCY- Improved BP Permissive HTN initially -Increased coreg back to 12.5 mg PO BID yesterday, Lisinopril back up to 30 mg daily. -Monitor closely outpatient BPH sp surgery- bladder pump implantation -f/u with urology. No Portillo cath. DM2 on oral meds, well controlled as of recent Hg A1c -Hold PO meds- okay to restart on discharge -ISS, Accuchecks. Monitor outpatient HYPERLIPIDEMIA -Increased Zocor to 40mg daily to keep ldl<70. PAST TOBACCO USE DVT PROPHYLAXIS -Lovenox SQ DISPOSITION PT/OT- Home pt/ot Ok to discharge home with [facility] today Discussed with . Total time spent on discharge = 32 minutes This includes examination of the patient, discharge planning, medication reconciliation, and communication with other providers. Discharge Instructions Discharge Goals Goal(s): Decrease discomfort, Improve function, Increase independence, Improve disease control, Prevent Disease Progression Activity Recommendations Activity Limitations: resume your previous activity (as tolerated prior to admission. Home PT/OT recommended) . Instructions / Follow-Up Instructions / Follow-Up MEDICATION CHANGES: 1. Increase Simvastatin to 40 mg from 20 mg daily due to high cholesterol levels and with new stroke 2. New medication: Plavix 75 mg daily MONITOR BP outpatient FOLLOW UP 1. Dr Lin 01/16/17 at 2:50 PM 2. Follow up with neurology Dr Velasco/Johanna Saucedo PA-C in 4-6 weeks HOME PT/OT recommended Current Hospital Diet Patient's current hospital diet: Diabetes Type 2 Diet Discharge Diet Recommended Diet: AHA Diet (Heart Healthy), Low Sodium Diet (2gm Na), Diabetes Type 2 Diet Pending Studies Studies pending at discharge: no List of pending studies: Echocardiogram results pending Laboratory Results Lipid Panel Test 01/08/17 07:25 Range/Units Triglycerides Level 144 0-150 mg/dl Cholesterol Level 160 0-200 mg/dl HDL Cholesterol 35 mg/dl Cholesterol/HDL Ratio 4.6 LDL Cholesterol, Calculated 96 mg/dl Medical Emergencies . Who to Call and When: Medical Emergencies: If at any time you feel your situation is an emergency, please call 911 immediately. . Non-Emergent Contact Non-Emergency issues call your: Primary Care Provider . . "Provider Documentation" section prepared by Ria Bess. VTE Core Measure Inpt VTE Proph given/why not?: Enoxaparin (Lovenox)SQ
[2017-01-10 11:24] VITALS: BP 134/84; PULSE 86; TEMP 36.5; O2SAT 95
[2017-01-10 12:00] VITALS: O2SAT 95
--- NOTE | 2017-01-10 12:27 | Pharmacy Progress Note ---
Pharmacist Stroke Counseling Date of Service Jan 10, 2017. Scope Pharmacy has been consulted to provide medication discharge counseling for this patient admitted with ischemic stroke/hemorrhagic stroke/ transient ischemic attack as per the Pharmacist Discharge Counseling for Stroke Patients Protocol. Medications on Discharge New Medications: Simvastatin (Zocor) 40 Mg Tab 1 TAB PO HS for 30 Days, #30 TAB 2 Refills Clopidogrel Bisulfate (Clopidogrel) 75 Mg Tab 75 MG PO QAM for 30 Days, #30 TAB 2 Refills Continued Medications: Aspirin (Aspirin Chewable) 81 Mg Chew 81 MG PO DAILY, TAB Carvedilol (Coreg) 12.5 Mg Tab 12.5 MG PO BID, TAB Dorzolamide Hcl (Trusopt Oph) 2 % Tosha 1 DROPS OPB BID, #10 ML 3 Refills Fish Oil ([place]-3) 1 Ea Cap 1 CAP PO DAILY, CAP Latanoprost (Xalatan 0.005% Oph Tosha) 0.005 % Tosha 1 DROPS OPB HS, ML 3 Refills Levothyroxine Sodium (Synthroid) 25 Mcg Tab 25 MCG PO DAILY for 30 Days, #30 TAB 5 Refills Lisinopril (Prinivil) 10 Mg Tab 10 MG PO HS, TAB Lisinopril (Zestril) 20 Mg Tab 20 MG PO DAILY, TAB take at 1200 Metformin Hcl (Glucophage) 500 Mg Tab 500 MG PO BID, TAB Omeprazole (Prilosec) 20 Mg Capcr 20 MG PO DAILY, CAP Sucralfate (Sucralfate) 1 Gm Tab 1 GM PO ACHS, TAB Discontinued Medications: Simvastatin (Zocor) 20 Mg Tab 20 MG PO QPM, TAB Action The above medications, specifically ones for stroke treatment/prophylaxis ( Plavix 75mg Daily, Increased Zocor from 20mg daily to 40mg daily), have been reviewed in detail with the patient and/or patient sales representative sales manager(s) prior to discharge. This includes indication, common adverse reactions, drug interactions, and medication administration. Medication counseling has been employed using the teach-back method to ensure understanding. Outcome The patient and/or patient sales representative sales manager(s) have demonstrated understanding of the medications. Please note, they are aware that the pharmacist will call them within 72 hours post-discharge to confirm that the appropriate medications are being taken and answer any further medication related questions the patient might have at that time. Contact information Individual to be contacted: Parul Ray Relationship to patient (if applicable): Phone number: [phone] or [phone] Best time to call: 10am Additional comments: n/a Thank you for allowing pharmacy to be involved in the care of this patient. Please call [phone] or [phone] with any additional questions
--- NOTE | 2017-01-10 15:06 | ECHOCARDIOGRAM REPORT ---
*NOTICE TO RECEIVING CONSTITUTION PARTY AGENCY This information is strictly Confidential and protected under [place] law. [place] law prohibits you from making any further disclosure of this information unless further disclosure is expressly permitted by the written consent of the person to whom it pertains or is authorized by law. A general authorization for the release of medical or other information is not sufficient for this purpose. Hospital accepts no responsibility if the information is made available to any other person, INCLUDING THE PATIENT. Interpretation Summary * Name: MEET FUNES Study Date: 01/10/2017 06:45 AM BP: 148/79 mmHg * Patient Location: C.2T\S\S241\S\2 HR: 71 * : 1935 (M/d/yyyy) Gender: Male Height: 70 in * Age: 81 yrs Ethnicity: [place] Weight: 203 lb * Ordering Physician: Ria Bess. * Referring Physician: Self, Referred * Performed By: Juju Bowman RDCS * * Reason For Study: PROBABLE STROKE * BSA: 2.1 m2 * History: POSSIBLE STROKE WITH MRI, ACUTE SMALL FRONTAL INFARCT * -- Conclusions -- * The left ventricle is normal in size. * There is moderate concentric left ventricular hypertrophy. * Left ventricular systolic function is normal. * The left ventricular wall motion is normal. * Ejection Fraction = 60-65%. * Grade I diastolic dysfunction, (abnormal relaxation pattern). * Aortic valve sclerosis moderate, without significant aortic valvular stenosis. * There is mild mitral annular calcification. * There is trace mitral regurgitation. * There is trace tricuspid regurgitation. Procedure Details * A saline contrast injection was performed to assess for cardiac shunting. * The injection was performed through an intravenous line in the right arm. * The attending nurse who injected the saline contrast was ZHANE MCPHERSON RN. * A total of 10 cc of agitated saline was given. * A contrast injection of Definity was performed to improve assessment of LV function. * Contrast was injected into an intravenous site in the right arm. * One vial of Definity ultrasound contrast was diluted in normal saline to a total volume of 10 ml. A total of '2' ml of solution was administered during imaging. * Lot # [id number] of Definity utilized for procedure. * Expiration date DEC 23. * The attending nurse who injected the contrast agent was ZHANE MCPHERSON RN. * A complete two-dimensional transthoracic echocardiogram was performed (2D, M-mode, Doppler and color flow Doppler). Left Ventricle * The left ventricle is normal in size. * There is moderate concentric left ventricular hypertrophy. * The basal septum is thickened and angulated consistent with sigmoid septum. * Ejection Fraction = 60-65%. * Left ventricular systolic function is normal. * The left ventricular wall motion is normal. Right Ventricle * The right ventricle is normal in size and function. Atria * The left atrial size is normal. * Right atrial size is normal. * No ASD detected; PFO is not assessed. Mitral Valve * There is mild mitral annular calcification. * There is no mitral valve stenosis. * There is trace mitral regurgitation. Tricuspid Valve * The tricuspid valve is normal. * There is no tricuspid stenosis. * There is trace tricuspid regurgitation. Aortic Valve * The aortic valve is trileaflet. * Aortic valve sclerosis moderate, without significant aortic valvular stenosis. * No aortic regurgitation is present. Pulmonic Valve * The pulmonic valve is not well visualized. Great Vessels * The aortic root is normal size. Pericardium/Pleural * There is a small loculated apical effusion of non hemodynamic significance. Great Vessels * Normal inferior vena cava diameter and respiratory variation suggests normal central venous pressure. Left Ventricular Diastolic Function * Grade I diastolic dysfunction, (abnormal relaxation pattern). MMode 2D Measurements and Calculations IVSd 1.6 cm IVSs 2.0 cm LVIDd 3.8 cm LVIDs 2.6 cm LVPWd 1.6 cm LVPWs 1.9 cm IVS/LVPW 1.0 FS 31.7 % EDV(Teich) 62.7 ml ESV(Teich) 24.8 ml EF(Teich) 60.5 % EDV(cubed) 55.7 ml ESV(cubed) 17.7 ml EF(cubed) 68.2 % % IVS thick 24.4 % % LVPW thick 16.4 % LV mass(C)d 242.7 grams LV mass(C)dI 115.5 grams/m\S\2 LV mass(C)s 211.0 grams LV mass(C)sI 100.5 grams/m\S\2 SV(Teich) 37.9 ml SI(Teich) 18.0 ml/m\S\2 SV(cubed) 38.0 ml SI(cubed) 18.1 ml/m\S\2 Ao root diam 3.6 cm Ao root area 10.3 cm\S\2 LA dimension 3.1 cm LA/Ao 0.86 LVAd ap4 35.2 cm\S\2 LVLd ap4 8.9 cm EDV(MOD-sp4) 110.0 ml EDV(sp4-el) 118.7 ml LVAs ap4 19.3 cm\S\2 LVLs ap4 7.1 cm ESV(MOD-sp4) 41.8 ml ESV(sp4-el) 44.1 ml EF(MOD-sp4) 62.0 % EF(sp4-el) 62.9 % LVAd ap2 31.1 cm\S\2 LVLd ap2 8.8 cm EDV(MOD-sp2) 88.4 ml EDV(sp2-el) 93.3 ml LVAs ap2 16.8 cm\S\2 LVLs ap2 7.8 cm ESV(MOD-sp2) 29.6 ml ESV(sp2-el) 30.8 ml EF(MOD-sp2) 66.5 % EF(sp2-el) 67.0 % LVLd %diff -0.86 % EDV(MOD-bp) 99.5 ml LVLs %diff 8.7 % ESV(MOD-bp) 37.1 ml EF(MOD-bp) 62.8 % SV(MOD-sp4) 68.3 ml SI(MOD-sp4) 32.5 ml/m\S\2 SV(MOD-sp2) 58.8 ml SI(MOD-sp2) 28.0 ml/m\S\2 SV(MOD-bp) 62.4 ml SI(MOD-bp) 29.7 ml/m\S\2 SV(sp4-el) 74.6 ml SI(sp4-el) 35.5 ml/m\S\2 SV(sp2-el) 62.6 ml SI(sp2-el) 29.8 ml/m\S\2 Doppler Measurements and Calculations MV E max dolores 71.7 cm/sec MV A max dolores 125.8 cm/sec MV E/A 0.57 MV dec time 0.31 sec Ao V2 max 133.8 cm/sec Ao max PG 7.2 mmHg Ao max PG (full) 4.4 mmHg LV V1 max PG 2.8 mmHg LV V1 max 83.7 cm/sec
--- NOTE | 2017-01-12 16:46 | Pharmacy Progress Note ---
Pharmacist Post D/C Phone Note Date of phone call: Jan 12, 2017. Individual with whom pharmacist spoke to: Parul--patient's The following questions were reviewed during the phone call with responses listed below each: Can you tell me the medications that you are currently taking as well as when and how you take each medication? Medications Dose Route/Sig Max Daily Dose Days Date Category Dose Instructions Zocor (Simvastatin) 40 Mg Tab 1 Tab PO HS 30 01/10/17 Rx Clopidogrel (Clopidogrel Bisulfate) 75 Mg Tab 75 Mg PO QAM 30 01/10/17 Rx Zestril (Lisinopril) 20 Mg Tab 20 Mg PO DAILY 01/07/17 Reported take at 1200 Prinivil (Lisinopril) 10 Mg Tab 10 Mg PO HS 01/07/17 Reported Coreg (Carvedilol) 12.5 Mg Tab 12.5 Mg PO BID 01/07/17 Reported Glucophage (Metformin Hcl) 500 Mg Tab 500 Mg PO BID 01/07/17 Reported Synthroid (Levothyroxine Sodium) 25 Mcg Tab 25 Mcg PO DAILY 30 01/07/17 Reported Sucralfate 1 Gm Tab 1 Gm PO ACHS 08/15/15 Reported Xalatan 0.005% Oph Tosha (Latanoprost) 0.005 % Tosha 1 Drops OPB HS 08/15/15 Reported [place]-3 (Fish Oil) 1 Ea Cap 1 Cap PO DAILY 08/15/15 Reported Trusopt Oph (Dorzolamide Hcl) 2 % Tosha 1 Drops OPB BID 08/15/15 Reported Aspirin Chewable (Aspirin) 81 Mg Chew 81 Mg PO DAILY 08/15/15 Reported Prilosec (Omeprazole) 20 Mg Capcr 20 Mg PO DAILY 08/15/15 Reported When have you missed any doses of your medications? none missed What side effects are you having from your medications? none noticed in regards to medications What questions do you have about your medications? Parul inquired about levothyroxine dose possibly needing to be adjusted-- instructed her to inquire about the assessment of this at f/u appt with PCP on Sunday01/16/17. What problems are you having obtaining your medications? none When is your next appointment with your primary care doctor? f/u appt with Dr Lin on Sunday01/16/17 Additional comments: Parul stated that seems to be experiencing some confusion & more fatigue than usual but that this has not changed significantly since admission or discharge. No other questions or concerns at this time. As per the Pharmacist Discharge Counseling for Stroke Patients Protocol, this phone call has been completed within 72 hours of discharge. Thank you for allowing us to be involved in the care of this patient.
== END 2017-01-10 12:37 | disposition home health service (06) | DRG 64 ==
LOC: ENRESERVDT → ENRESERVTM → EDBD 17:56 → C.EDA 18:01 → C.2T 21:27
PROVIDERS: ADMIT Internal Medicine; ATTEND Internal Medicine
DX: I63.9 Cerebral infarction, unspecified (principal); G93.40 Encephalopathy, unspecified; I16.0 Hypertensive urgency; N40.0 Benign prostatic hyperplasia without lower urinary tract symptoms; E11.9 Type 2 diabetes mellitus without complications; Z87.891 Personal history of nicotine dependence; G30.9 Alzheimer's disease, unspecified; E78.5 Hyperlipidemia, unspecified; F01.50 Vascular dementia, unspecified severity, without behavioral disturbance, psychotic disturbance, mood disturbance, and anxiety

== ENCOUNTER 2017-01-22 00:18 | Emergency (ER) | payer OTHER ==
[~2017-01-22] VITALS: Ht 177.8 cm; Wt 95.4 kg
[~2017-01-22 00:18] MED LIST changes: +ASPCH81X PO; -CALC-354 PO; +DORZ2SOL17 OPB; -FURO20TA PO; +LATA0.009 OPB; +LEVO25TA PO; -LISI-461 PO; +LISI-725 PO; +LISI10TA PO; +OMEG10007 PO; +PLV75 PO; -POTA1CAP2 PO; +PRLSR20 PO; +SIMV40TA4 PO; +SUCR1TAB PO
[2017-01-22 00:27] VITALS: TEMP 36.6; Ht 177.8 cm; Wt 95.4 kg
[2017-01-22] MEDS ORDERED: CLOP1TAB15 PO (01:33)
[2017-01-22] MEDS ORDERED: SIMV40TA2 PO (01:36)
[2017-01-22 03:15] VITALS: BP 145/90; PULSE 83; O2SAT 94
--- NOTE | 2017-01-22 03:19 | EMERGENCY ROOM VISIT NOTE ---
History Report prepared by Amanda: Carlos Reis Under the Supervision of: Dr. Inessa Groves D.O. First contact with patient: 00:45 Chief Complaint: OTHER COMPLAINT Stated Complaint: URINARY PUMP NOT WORKING-PAIN History of Present Illness The patient is a 81 year old male who presents to the Emergency Room with complaints of persistent inability to void beginning earlier today. He reports having an AMS 800 Urinary Control system and that it is malfunctioning which is not allowing him to void or relieve pressure. Source of History: patient Onset: earlier today Position: other (penis) Quality: other (urinary symptoms) Timing: other (persistent) Note: The patient notes having pressure in his pelvic area. Review of Systems See HPI for pertinent positives & negatives. A total of 10 systems reviewed and were otherwise negative. Past Medical & Surgical Medical Problems: (1) Encephalopathy Surgical Problems: (1) History of prostate surgery Family History Diabetes mellitus Heart disease Hypertension Social History Smoking Status: Former Smoker Marital Status: Housing Status: lives with family Current/Historical Medications Scheduled Aspirin (Aspirin Chewable), 81 MG PO DAILY Carvedilol (Coreg), 12.5 MG PO BID Clopidogrel (Plavix), 75 MG PO DAILY Dorzolamide Hcl (Trusopt Oph), 1 DROPS OPB BID Latanoprost (Xalatan 0.005% Oph Tosha), 1 DROPS OPB HS Levothyroxine Sodium (Synthroid), 25 MCG PO DAILY Lisinopril (Prinivil), 10 MG PO HS Lisinopril (Zestril), 20 MG PO DAILY Metformin Hcl (Glucophage), 500 MG PO BID Omeprazole (Prilosec), 20 MG PO DAILY Simvastatin (Zocor), 40 MG PO QPM Sucralfate (Sucralfate), 1 GM PO ACHS Allergies Coded Allergies: No Known Allergies (Unverified , 01/22/17) Physical Exam Vital Signs Date Time Temp Pulse Resp B/P Pulse Ox O2 Delivery O2 Flow Rate FiO2 01/22/17 03:15 83 18 145/90 94 01/22/17 02:15 78 20 185/102 94 Room Air 01/22/17 00:27 36.6 72 18 186/95 96 Room Air Physical Exam HEENT: Head - normocephalic and atraumatic Pupils are equal, round, and reactive to light. Extraocular eye muscles are intact, and sclera are anicteric. Nose - moist nasal mucosa without discharge. Mouth - moist buccal mucosa. Oropharynx is nonerythematous and there is no tonsillar exudate or edema noted. Neck: Supple; no JVD, nuchal rigidity, cervical lymphadenopathy. Heart: Regular rate and rhythm. There is a normal S1 and S2 with no murmurs, clicks, or gallops appreciated. Lungs: Clear to auscultation bilaterally with no wheezes, rales, or rhonchi. Abdomen: Soft; significant abdominal distention; good bowel sounds. There are no palpable pulsatile masses or hepatosplenomegaly. There is no guarding, rigidity, or rebound noted. Extremities: No evidence of cyanosis, clubbing, or edema. There are easily palpable peripheral pulses. Skin: warm and dry with good turgor and no rashes. Medical Decision & Procedures ED Course 0051: Past medical records reviewed. The patient was evaluated in room A9B. A complete history and physical exam was performed. 0125: Discussed the patient's case with Dr. Boyer. The patient had a bladder scan of 743ml. 0225: Discussed the patient's case with Dr. Townsend from [facility] u[facility] in [place], [place]. 0300: I researched the activation of this type of urinary pump. I prepared to deactivate the pump when initially squeezing the pump within the scrotum cause significant urinary output. I asked the patient to stand up and show me how he typically uses the pump. He attempted to activate the pump by grabbing the base of his penis instead of the scrotum. The patient's son remarked that since the patient suffers stroke 2 weeks ago, he gets intermittently confused. I was able to help the patient activate the pump appropriately and it seemed that he had to this bladder. There was no need for me to deactivate the pump as it seems that the patient may have not been using the pump correctly. The patient was discharged home. Medical Decision The patient is a 81 year old male who presents to the Emergency Room with complaints of persistent inability to void beginning earlier today. Differentials include urinary retention vs. pump malfunction. The patient has a urinary pump in place. He cannot receive a urinary catheter unless the pump is deactivated. It seems that the patient may have been using his pump incorrectly. However, I've asked that they still follow-up with [facility] urology. Consults Time Called: 119 Consulting Physician: Dr. Boyer Returned Call: 124 Discussed the patient's case with Dr. Boyer. Additional Consults: Time Called: 219 Consulted Physician: Dr. Townsend Returned Call: 224 Additional Comments: Discussed the patient's case with Dr. Townsend. Impression Primary Impression: Urinary retention Scribe Attestation The scribe's documentation has been prepared under my direction and personally reviewed by me in its entirety. I confirm that the note above accurately reflects all work, treatment, procedures, and medical decision making performed by me. Departure Information Dispostion Home / Self-Care Forms WORK / SCHOOL INSTRUCTIONS, HOME CARE DOCUMENTATION FORM, IMPORTANT VISIT INFORMATION Patient Instructions My [facility] Additional Instructions Follow up with Urology with regards to the pump Make sure you are squeezing the pump in the scrotum
== END 2017-01-22 03:12 | disposition home or self-care (01) ==
LOC: C.EDB 00:22 → C.EDA 03:12
DX: R33.8 Other retention of urine (principal); Z87.891 Personal history of nicotine dependence; Z79.899 Other long term (current) drug therapy

== ENCOUNTER 2017-10-15 19:12 | Observation (INO) | payer OTHER ==
[~2017-10-15] VITALS: Ht 177.8 cm; Wt 95.0 kg
[~2017-10-15 19:12] MED LIST changes: +CLOP1TAB15 PO; -OMEG10007 PO; -PLV75 PO; +SIMV40TA2 PO; -SIMV40TA4 PO
--- NOTE | 2017-10-15 19:43 | EMERGENCY ROOM VISIT NOTE ---
History Report prepared by Amanda: Esequiel Davidson Under the Supervision of: Dr. Robert Mello D.O. First contact with patient: 19:28 Chief Complaint: ALTERED MENTAL STATUS Stated Complaint: AMS, LETHARGIC Nursing Triage Summary: per patients over the past two days patient has been increasingly confused , weak, and tired. per patient had a CVA last january. patient alert to person and place , confused to time and situation . History of Present Illness The patient is an 81 year old male who presents to the Emergency Room with intermittent confusion over the past week. Per the nursing staff, the patient is confused to place and time, and has been weak and tired. He was also noted to have a right-sided droop. He did have a stroke last January. Per the patient's , the patient has been taking Aricept for the stroke, which affected his "mind more than body". The patient's states that the confusion has been off and on over the past week. He has been "sleeping all the time", and has been having trouble getting out of his recliner and has had some intermittent "shuffling" of the feet while walking. He was noted to be dozing off while at the dinner table off and on all day, and is noted to be a bit better currently. The patient's Aricept was increased from 5 mg to 10 mg last month. Any fevers, headaches, nausea, vomiting, abdominal pain, recent falls, shortness of breath, chest pain, leg swelling, or leg pain were denied. Source of History: patient, spouse/significant other, nursing staff Onset: Over past week Position: other (global - confusion) Symptom Intensity: dozing off at dinner table Quality: other (altered mental status - hx of stroke last January) Timing: intermittent Associated Symptoms: + fatigue (sleeping all the time), + weakness, No fevers, No headache, No chest pain, No SOB, No nausea, No abdominal pain Note: Denies leg swelling or leg pain, recent falls denied. Review of Systems See HPI for pertinent positives & negatives. A total of 10 systems reviewed and were otherwise negative. Past Medical & Surgical Medical Problems: (1) Encephalopathy Surgical Problems: (1) History of prostate surgery Family History Diabetes mellitus Heart disease Hypertension Social History Smoking Status: Former Smoker Marital Status: Housing Status: lives with family Current/Historical Medications Scheduled Amlodipine (Norvasc), 5 MG PO DAILY Aspirin (Aspirin Chewable), 81 MG PO DAILY Carvedilol (Coreg), 12.5 MG PO BID Clopidogrel (Plavix), 75 MG PO DAILY Donepezil Hydrochloride (Donepezil Hcl), 5 MG PO DAILY Dorzolamide Hcl (Trusopt Oph), 1 DROPS OPB BID Latanoprost (Xalatan 0.005% Oph Tosha), 1 DROPS OPB HS Levothyroxine Sodium (Synthroid), 25 MCG PO DAILY Lisinopril (Zestril), 30 MG PO DAILY Metformin Hcl (Glucophage), 1,000 MG PO BIDM Mirabegron (Myrbetriq Er), 50 MG PO DAILY Omeprazole (Prilosec), 20 MG PO BID Simvastatin (Zocor), 20 MG PO QPM Sucralfate (Sucralfate), 1 GM PO ACHS Allergies Coded Allergies: No Known Allergies (Unverified , 01/22/17) Physical Exam Vital Signs Date Time Temp Pulse Resp B/P (MAP) Pulse Ox O2 Delivery O2 Flow Rate FiO2 10/15/17 20:38 62 20 179/85 94 Room Air 10/15/17 19:27 95 Room Air 10/15/17 19:23 70 10/15/17 19:18 36.7 68 18 187/119 94 Room Air Physical Exam GENERAL: Patient is awake, alert, does not appear to be uncomfortable or anxious. EYES: The conjunctivae are clear. The pupils are round and reactive. EARS, NOSE, MOUTH AND THROAT: The nose is without any evidence of any deformity. Mucous membranes are moist tongue is midline NECK: The neck is nontender and supple. RESPIRATORY: Normal respiratory effort is noted there is no evidence of wheezing rhonchi or rales CARDIOVASCULAR: Regular rate and rhythm noted there no murmurs rubs or gallops normal S1 normal S2 GASTROINTESTINAL: The abdomen is soft. Bowel sounds are present in all quadrants. Abdomen is nontender MUSCULOSKELETAL/EXTREMITIES: There is no evidence of gross deformity full range of motion is noted in the hips and shoulders SKIN: Pedal edema bilaterally. NEUROLOGIC: Patient is awake and oriented to person, place and situation. Does not recognize initially. Strength was diminished but symmetric. Medical Decision & Procedures ER Provider Diagnostic Interpretation: Radiology results as stated below per my review and radiologist interpretation: CT SCAN OF THE BRAIN WITHOUT IV CONTRAST CLINICAL HISTORY: Change in mental status. COMPARISON STUDY: CT of the brain dated 01/07/2017. TECHNIQUE: Unenhanced axial CT scan of the brain is performed from the vertex to the skull base. CT DOSE: 537.48 mGy.cm FINDINGS: Brain parenchyma: There are age-related involutional changes noting moderate subcortical and periventricular microangiopathic change. There is no hemorrhage, mass effect, or evidence of acute territorial ischemia by CT criteria. Chronic lacunar infarcts are present within the basal ganglia bilaterally. Zacarias-white matter is preserved. No extra-axial fluid collection is seen. Ventricles, sulci, cisterns: Prominent secondary to involutional change. Intracranial vasculature: There is atherosclerotic calcification of the cavernous carotid and vertebral arteries. Calvarium: Unremarkable. Sinuses and mastoids: The visualized paranasal sinuses are clear. The mastoid air cells are well pneumatized. Orbits: The bony orbits are grossly intact. There are bilateral ocular lens implants. IMPRESSION: Senescent changes as above with no hemorrhage, mass effect, or evidence of acute territorial ischemia by CT criteria. Electronically signed by: Sriram Dueñas M.D. 10/15/2017 8:26 PM Dictated Date/Time: 10/15/2017 8:24 PM ADDENDUM ADDENDUM: There is prominence along the right heart border which may represent artifact/overlapping shadows. Correlation with a PA and lateral examination is recommended for further assessment. Electronically signed by: Sriram Dueñas M.D. 10/15/2017 8:29 PM Dictated Date/Time: 10/15/2017 8:28 PM ORIGINAL REPORT SINGLE VIEW CHEST CLINICAL HISTORY: Strokelike symptoms. FINDINGS: An AP, portable, upright chest radiograph is compared to study dated 01/07/2017 and 08/15/2015. The examination is degraded by portable technique and patient rotation. The heart is enlarged and there is atherosclerotic calcification of the thoracic aorta. There is pulmonary vascular congestion. The lungs and pleural spaces are clear. Calcific densities bilaterally may represent calcified pleural plaques. Calcified granulomas are observed. Bibasilar atelectasis is observed. There is no airspace consolidation typical for pneumonia or large pleural effusion. No pneumothorax is seen. The skeletal structures are osteopenic. The bony thorax is grossly intact. IMPRESSION: 1. Cardiomegaly with mild pulmonary vascular congestion. 2. There is no airspace consolidation typical for pneumonia or large pleural effusion. 3. Calcific densities bilaterally may represent pleural plaques. These are unchanged dating back to 2014. Electronically signed by: Sriram Dueñas M.D. 10/15/2017 8:01 PM Dictated Date/Time: 10/15/2017 7:59 PM Laboratory Results 10/15/17 18:53 Red Blood Count 4.84, Mean Corpuscular Volume 87.0, Mean Corpuscular Hemoglobin 30.0, Mean Corpuscular Hemoglobin Concent 34.4, Mean Platelet Volume 8.9, Neutrophils (%) (Auto) 68.4, Lymphocytes (%) (Auto) 19.8, Monocytes (%) (Auto) 8.1, Eosinophils (%) (Auto) 3.1, Basophils (%) (Auto) 0.2, Neutrophils # (Auto) 3.36, Lymphocytes # (Auto) 0.97, Monocytes # (Auto) 0.40, Eosinophils # (Auto) 0.15, Basophils # (Auto) 0.01 10/15/17 18:53 Test 10/15/17 18:53 10/15/17 20:26 10/15/17 20:40 White Blood Count 4.91 K/uL (4.8-10.8) Red Blood Count 4.84 M/uL (4.7-6.1) Hemoglobin 14.5 g/dL (14.0-18.0) Hematocrit 42.1 % (42-52) Mean Corpuscular Volume 87.0 fL (80-100) Mean Corpuscular Hemoglobin 30.0 pg (25-34) Mean Corpuscular Hemoglobin Concent 34.4 g/dl (32-36) Platelet Count 151 K/uL (130-400) Mean Platelet Volume 8.9 fL (7.4-10.4) Neutrophils (%) (Auto) 68.4 % Lymphocytes (%) (Auto) 19.8 % Monocytes (%) (Auto) 8.1 % Eosinophils (%) (Auto) 3.1 % Basophils (%) (Auto) 0.2 % Neutrophils # (Auto) 3.36 K/uL (1.4-6.5) Lymphocytes # (Auto) 0.97 K/uL (1.2-3.4) Monocytes # (Auto) 0.40 K/uL (0.11-0.59) Eosinophils # (Auto) 0.15 K/uL (0-0.5) Basophils # (Auto) 0.01 K/uL (0-0.2) RDW Standard Deviation 44.6 fL (36.4-46.3) RDW Coefficient of Variation 14.2 % (11.5-14.5) Immature Granulocyte % (Auto) 0.4 % Immature Granulocyte # (Auto) 0.02 K/uL (0.00-0.02) Anion Gap 5.0 mmol/L (3-11) Est Creatinine Clear Calc Drug Dose 56.8 ml/min Estimated GFR () 63.9 Estimated GFR (Non- 55.1 BUN/Creatinine Ratio 13.7 (10-20) Calcium Level 8.8 mg/dl (8.5-10.1) Total Creatine Kinase 48 U/L (39-308) Creatine Kinase MB 0.9 ng/ml (0.5-3.6) Creatine Kinase MB Ratio 1.9 (0-3.0) Troponin I < 0.015 ng/ml (0-0.045) Chemistry Specimen Hemolysis Prothrombin Time 10.2 SECONDS (9.0-12.0) Prothromb Time International Ratio 1.0 (0.9-1.1) Activated Partial Thromboplast Time 26.5 SECONDS (21.0-31.0) Partial Thromboplastin Ratio 1.0 Urine Color YELLOW Urine Appearance CLEAR (CLEAR) Urine pH 6.0 (4.5-7.5) Urine Specific [place] 1.020 (1.000-1.030) Urine Protein TRACE (NEG) Urine Glucose (UA) NEG (NEG) Urine Ketones TRACE (NEG) Urine Occult Blood NEG (NEG) Urine Nitrite NEG (NEG) Urine Bilirubin NEG (NEG) Urine Urobilinogen NEG (NEG) Urine Leukocyte Esterase TRACE (NEG) Urine WBC (Auto) 1-5 /hpf (0-5) Urine RBC (Auto) 0-4 /hpf (0-4) Urine Hyaline Casts (Auto) 1-5 /lpf (0-5) Urine Epithelial Cells (Auto) 20-30 /lpf (0-5) Urine Bacteria (Auto) NEG (NEG) Laboratory results per my review. ECG Indication: altered mental status Rate (beats per minute): 77 Rhythm: normal sinus Findings: no ectopy, other (no acute ST segment abnormalities) Change: no significant change (from 01/17/17) ED Course 1935: The patient was evaluated in room B9. A complete history and physical examination were performed. 2044: Upon reevaluation, the patient is resting. I discussed results and treatment plan with him and his . They verbalizes agreement and understanding. The patient will be evaluated for further management and care. 2050: I discussed the patient's case with Dr. Johann Cespedes pipeline dispatcher. The patient will be evaluated for further management. Medical Decision Differential diagnosis: Etiologies such as metabolic, infection, hypoglycemia, electrolyte abnormalities , cardiac sources, intracerebral event, toxicologic, neurologic, as well as others were entertained. Nursing notes reviewed. The patient is an 81-year-old male who presented to the emergency department for an evaluation of altered mental status. The patient has a history of a stroke earlier in the year. When he initially presented to the emergency department by ambulance he was found have a facial droop according the nursing staff. On my evaluation the patient did not of a facial droop. He appears to be close to his baseline at this time. I discussed the patient's laboratory and radiographic studies with him as well as his significant other. Given his past medical history and findings earlier I discussed his case with the on-call [facility] hospitalist. They have agreed to evaluate the patient in the emergency department for further management and disposition. Medication Reconcilliation Current Medication List: was personally reviewed by me Blood Pressure Screening Patient's blood pressure: Elevated blood pressure Consults Time Called: 2045 Consulting Physician: Dr. Johann Cespedes pipeline dispatcher Returned Call: 2050 I discussed the patient's case with Dr. Johann Cespedes pipeline dispatcher. The patient will be evaluated for further management. Impression Primary Impression: Altered mental status Additional Impression: TIA (transient ischemic attack) Scribe Attestation The scribe's documentation has been prepared under my direction and personally reviewed by me in its entirety. I confirm that the note above accurately reflects all work, treatment, procedures, and medical decision making performed by me. Departure Information Dispostion Being Evaluated By Hospitalist Prescriptions Amlodipine (Norvasc) 5 Mg Tab 5 MG PO DAILY for 30 Days, #30 TAB 2 Refills Prov: Kylie Mixon M.D. 10/16/17 Referrals Marco Kim M.D. (PCP) Patient Instructions My [facility] Health Problem Qualifiers Primary Impression: Altered mental status Altered mental status type: unspecified Qualified Codes: R41.82 - Altered mental status, unspecified Additional Impression: TIA (transient ischemic attack) Transient cerebral ischemia type: unspecified Qualified Codes: G45.9 - Transient cerebral ischemic attack, unspecified
--- NOTE | 2017-10-15 20:03 | DIAGNOSTIC IMAGING REPORT ---
ADDENDUM ADDENDUM: There is prominence along the right heart border which may represent artifact/overlapping shadows. Correlation with a PA and lateral examination is recommended for further assessment. Electronically signed by: Sriram Dueñas M.D. 10/15/2017 8:29 PM Dictated Date/Time: 10/15/2017 8:28 PM ORIGINAL REPORT SINGLE VIEW CHEST CLINICAL HISTORY: Strokelike symptoms. FINDINGS: An AP, portable, upright chest radiograph is compared to study dated 01/07/2017 and 08/15/2015. The examination is degraded by portable technique and patient rotation. The heart is enlarged and there is atherosclerotic calcification of the thoracic aorta. There is pulmonary vascular congestion. The lungs and pleural spaces are clear. Calcific densities bilaterally may represent calcified pleural plaques. Calcified granulomas are observed. Bibasilar atelectasis is observed. There is no airspace consolidation typical for pneumonia or large pleural effusion. No pneumothorax is seen. The skeletal structures are osteopenic. The bony thorax is grossly intact. IMPRESSION: 1. Cardiomegaly with mild pulmonary vascular congestion. 2. There is no airspace consolidation typical for pneumonia or large pleural effusion. 3. Calcific densities bilaterally may represent pleural plaques. These are unchanged dating back to 2014. Electronically signed by: Sriram Dueñas M.D. 10/15/2017 8:01 PM Dictated Date/Time: 10/15/2017 7:59 PM
[2017-10-15 20:10] LABS: BASO % 0.2 %; BASO ABS # 0.01 K/uL (0-0.2); COMPLETE YES; EOS % 3.1 %; HEMATOCRIT 42.1 % (42-52); IG% 0.4 %; LYMPH % 19.8 %; LYMPH ABS # 0.97 K/uL (1.2-3.4); MEAN CORPUSCULAR HGB CONC 34.4 g/dl (32-36); MEAN PLATELET VOLUME 8.9 fL (7.4-10.4); MONO % 8.1 %; NEUT % 68.4 %; PLATELET COUNT 151 K/uL (130-400); RED BLOOD COUNT 4.84 M/uL (4.7-6.1); WHITE BLOOD COUNT 4.91 K/uL (4.8-10.8)
[2017-10-15 20:24] LABS: BLOOD UREA NITROGEN 17 mg/dl (7-18); BUN/CREATININE RATIO 13.7 (10-20); CALCIUM 8.8 mg/dl (8.5-10.1); CARBON DIOXIDE 29 mmol/L (21-32); CHLORIDE 106 mmol/L (98-107); CKMB/CK RATIO 1.9 (0-3.0); CREATININE 1.23 mg/dl (0.60-1.40); GLUCOSE 136 mg/dl (70-99); POTASSIUM 4.1 mmol/L (3.5-5.1); SODIUM 140 mmol/L (136-145)
--- NOTE | 2017-10-15 20:27 | DIAGNOSTIC IMAGING REPORT ---
CT SCAN OF THE BRAIN WITHOUT IV CONTRAST CLINICAL HISTORY: Change in mental status. COMPARISON STUDY: CT of the brain dated 01/07/2017. TECHNIQUE: Unenhanced axial CT scan of the brain is performed from the vertex to the skull base. CT DOSE: 537.48 mGy.cm FINDINGS: Brain parenchyma: There are age-related involutional changes noting moderate subcortical and periventricular microangiopathic change. There is no hemorrhage, mass effect, or evidence of acute territorial ischemia by CT criteria. Chronic lacunar infarcts are present within the basal ganglia bilaterally. Zacarias-white matter is preserved. No extra-axial fluid collection is seen. Ventricles, sulci, cisterns: Prominent secondary to involutional change. Intracranial vasculature: There is atherosclerotic calcification of the cavernous carotid and vertebral arteries. Calvarium: Unremarkable. Sinuses and mastoids: The visualized paranasal sinuses are clear. The mastoid air cells are well pneumatized. Orbits: The bony orbits are grossly intact. There are bilateral ocular lens implants. IMPRESSION: Senescent changes as above with no hemorrhage, mass effect, or evidence of acute territorial ischemia by CT criteria. Electronically signed by: Sriram Dueñas M.D. 10/15/2017 8:26 PM Dictated Date/Time: 10/15/2017 8:24 PM
[2017-10-15 20:53] LABS: URINE APPEARANCE CLEAR (CLEAR); URINE BILIRUBIN NEG (NEG); URINE COLOR YELLOW; URINE EPITHELIAL CELL AUTO 20-30 /lpf (0-5); URINE NITRITE NEG (NEG); UROBILINOGEN NEG (NEG); ZZUR CULT IF INDIC CLEAN CATCH NO
[2017-10-15 20:54] LABS: MANUAL MICROSCOPIC REQUIRED? NO; REVIEW REQ? NO
[2017-10-15 21:01] LABS: PROTHROMBIN TIME (PATIENT) 10.2 SECONDS (9.0-12.0)
[2017-10-15] MEDS ORDERED: SIMV20TA2 PO (21:07)
[2017-10-15] MEDS ORDERED: DONE1TAB25 PO (21:10)
[2017-10-15] MEDS ORDERED: MIRA1TAB3 PO (21:13)
[2017-10-15] MEDS ORDERED: METF-384 PO (21:14)
[2017-10-15] MEDS ORDERED: ACETAMINOPHEN 325 MG TAB PO PRN (21:15)
[2017-10-15] MEDS ORDERED: ONDANSETRON INJ 2 MG/ML 2 ML VIAL IV PRN (21:15)
[2017-10-15] MEDS ORDERED: LISI1TAB3 PO (21:17)
[2017-10-15] MEDS ORDERED: AMLODIPINE BESYLATE 5 MG TAB PO STA (21:24)
--- NOTE | 2017-10-15 21:41 | History and Physical ---
History & Physical Date & Time of Service: Oct 15, 2017 at 21:27 Chief Complaint: Ams, Lethargic Primary Care Physician: Marco Kim M.D. 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 As per , he has been more lethargic, especially this morning. states that she called neurology earlier in the day and was told to decrease the dose of Aricept from 10mg to 5mg. This dose was increased in September 2017. A neighbor, who is also at bedside, states that he continued to be very lethargic and could not even stand for EMS. At baseline, he is ambulatory. He was brought to the ED and nursing noted possibly facial droop. Head CT was performed and labwork was done suggesting no acute process. On exam , no neurological deficits noted. states she takes care of him at home, but may require help at times. Otherwise, patient has no complaints at this time. Denies any pain or shortness of breath; denies palpitations, no motor weakness. No other issues to note. Past Medical/Surgical History Surgical Problems: (1) History of prostate surgery Status: Resolved Family History Diabetes mellitus Heart disease Hypertension Social History Smoking Status: Former Smoker Marital Status: Allergies Coded Allergies: No Known Allergies (Unverified , 01/22/17) Home Medications Scheduled Aspirin (Aspirin Chewable), 81 MG PO DAILY Carvedilol (Coreg), 12.5 MG PO BID Clopidogrel (Plavix), 75 MG PO DAILY Donepezil Hydrochloride (Donepezil Hcl), 5 MG PO DAILY Dorzolamide Hcl (Trusopt Oph), 1 DROPS OPB BID Latanoprost (Xalatan 0.005% Oph [place]ha), 1 DROPS OPB HS Levothyroxine Sodium (Synthroid), 25 MCG PO DAILY Lisinopril (Prinivil), 10 MG PO HS Lisinopril (Zestril), 20 MG PO DAILY Lisinopril (Zestril), 30 MG PO DAILY Metformin Hcl (Glucophage), 1,000 MG PO BIDM Mirabegron (Myrbetriq Er), 50 MG PO DAILY Omeprazole (Prilosec), 20 MG PO BID Simvastatin (Zocor), 20 MG PO QPM Sucralfate (Sucralfate), 1 GM PO ACHS Review of Systems Constitutional: + weakness, No fever, No chills Eyes: No worsening of vision ENT: No hearing loss Respiratory: No cough, No sputum, No wheezing, No shortness of breath, No dyspnea on exertion, No dyspnea at rest, No hemoptysis Cardiovascular: No chest pain, No edema, No palpitations Abdomen: No pain, No nausea, No vomiting Musculoskeletal: No joint pain, No muscle pain Genitourinary - Male: No hematuria, No dysuria, No urinary frequency, No urinary urgency Neurologic: + memory loss, + weakness, + balance problems, No paralysis, No numbness/tingling, No vertigo Psychiatric: No depression symptoms, No anxiety, No insomnia Endocrine: No fatigue Hematologic / Lymphatic: No abnormal bleeding/bruising Integumentary: No rash Allergic / Immunologic: No environmental allergies, No seasonal allergies Physical Exam Vital Signs Date Time Temp Pulse Resp B/P (MAP) Pulse Ox O2 Delivery O2 Flow Rate FiO2 10/15/17 20:38 62 20 179/85 94 Room Air 10/15/17 19:27 95 Room Air 10/15/17 19:23 70 10/15/17 19:18 36.7 68 18 187/119 94 Room Air General Appearance: no apparent distress Head: normocephalic, atraumatic Eyes: normal inspection ENT: hearing grossly normal Neck: supple Respiratory/Chest: chest non-tender, lungs clear, normal breath sounds, no respiratory distress, no accessory muscle use Cardiovascular: regular rate, rhythm, no edema, no murmur Abdomen/GI: normal bowel sounds, non tender, soft Extremities/Musculoskelatal: normal inspection, no calf tenderness, normal capillary refill, no pedal edema, normal range of motion Neurologic/Psych: wrapper cashier II-XII nml as tested, no motor/sensory deficits, alert, normal mood/affect, oriented x 3 Skin: normal color Lymphatic: no adenopathy Diagnostics Laboratory Results Results Past 24 Hours Test 10/15/17 18:53 10/15/17 20:26 10/15/17 20:40 Range/Units White Blood Count 4.91 4.8-10.8 K/uL Red Blood Count 4.84 4.7-6.1 M/uL Hemoglobin 14.5 14.0-18.0 g/dL Hematocrit 42.1 42-52 % Mean Corpuscular Volume 87.0 80-100 fL Mean Corpuscular Hemoglobin 30.0 25-34 pg Mean Corpuscular Hemoglobin Concent 34.4 32-36 g/dl Platelet Count 151 130-400 K/uL Mean Platelet Volume 8.9 7.4-10.4 fL Neutrophils (%) (Auto) 68.4 % Lymphocytes (%) (Auto) 19.8 % Monocytes (%) (Auto) 8.1 % Eosinophils (%) (Auto) 3.1 % Basophils (%) (Auto) 0.2 % Neutrophils # (Auto) 3.36 1.4-6.5 K/uL Lymphocytes # (Auto) 0.97 1.2-3.4 K/uL Monocytes # (Auto) 0.40 0.11-0.59 K/uL Eosinophils # (Auto) 0.15 0-0.5 K/uL Basophils # (Auto) 0.01 0-0.2 K/uL RDW Standard Deviation 44.6 36.4-46.3 fL RDW Coefficient of Variation 14.2 11.5-14.5 % Immature Granulocyte % (Auto) 0.4 % Immature Granulocyte # (Auto) 0.02 0.00-0.02 K/uL Sodium Level 140 136-145 mmol/L Potassium Level 4.1 3.5-5.1 mmol/L Chloride Level 106 98-107 mmol/L Carbon Dioxide Level 29 21-32 mmol/L Anion Gap 5.0 3-11 mmol/L Blood Urea Nitrogen 17 7-18 mg/dl Creatinine 1.23 0.60-1.40 mg/dl Est Creatinine Clear Calc Drug Dose 56.8 ml/min Estimated GFR () 63.9 Estimated GFR (Non- 55.1 BUN/Creatinine Ratio 13.7 10-20 Random Glucose 136 70-99 mg/dl Calcium Level 8.8 8.5-10.1 mg/dl Magnesium Level 2.0 1.8-2.4 mg/dl Total Creatine Kinase 48 39-308 U/L Creatine Kinase MB 0.9 0.5-3.6 ng/ml Creatine Kinase MB Ratio 1.9 0-3.0 Troponin I < 0.015 0-0.045 ng/ml Chemistry Specimen Hemolysis Prothrombin Time 10.2 9.0-12.0 SECONDS Prothromb Time International Ratio 1.0 0.9-1.1 Activated Partial Thromboplast Time 26.5 21.0-31.0 SECONDS Partial Thromboplastin Ratio 1.0 Urine Color YELLOW Urine Appearance CLEAR CLEAR Urine pH 6.0 4.5-7.5 Urine Specific [place] 1.020 1.000-1.030 Urine Protein TRACE NEG Urine Glucose (UA) NEG NEG Urine Ketones TRACE NEG Urine Occult Blood NEG NEG Urine Nitrite NEG NEG Urine Bilirubin NEG NEG Urine Urobilinogen NEG NEG Urine Leukocyte Esterase TRACE NEG Urine WBC (Auto) 1-5 0-5 /hpf Urine RBC (Auto) 0-4 0-4 /hpf Urine Hyaline Casts (Auto) 1-5 0-5 /lpf Urine Epithelial Cells (Auto) 20-30 0-5 /lpf Urine Bacteria (Auto) NEG NEG Diagnostic Radiology ADDENDUM: There is prominence along the right heart border which may represent artifact/overlapping shadows. 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 of CVA in January 2017 at this time, will monitor in tele check a Brain MRI PT/OT/speech check TSH, vitamin B12/folate levels discharge planning evaluation observation status Hx. of CVA in January 2017 currently on Plavix, which we can continue he was on dual antiplatelets, changed to just Plavix in September 2017 PT/OT ordered Alzheimer's dose of Aricept decreased today from 10mg to 5mg, which may help with lethargy patient discussed with neurology over the phone and this was dose change was approved by neurology Uncontrolled HTN elevated on admission will give a dose of amlodipine otherwise, continue Lisinopril home dosing continue Coreg DM2 hold oral agents BSGs ACHS insulin sliding scale for now HLD continue statin DVT ppx Lovenox FULL CODE VTE Prophylaxis VTE Risk Assessment Done? Y/N: Yes Risk Level: Moderate
[2017-10-15] MEDS ORDERED: GLUCAGON FOR INJ 1 MG VIAL SQ PRN (21:45)
[2017-10-15] MEDS ORDERED: GLUCOSE 40% GEL 15 GM TUBE PO PRN (21:45)
[2017-10-15] MEDS ORDERED: DEXTROSE 50% 50 ML SYR IV PRN (21:45)
[2017-10-15] MEDS ORDERED: GLUCOSE 10 TABS/TUBE PO PRN (21:45)
[2017-10-15] MEDS ORDERED: IV FLUIDS COMPLETED PRN (22:15)
[2017-10-15 22:40] VITALS: BP_SYST 200; BP_SYST 207; BP_DIAS 42; BP_DIAS 90; PULSE 65; TEMP 36.5; O2SAT 94; Ht 177.8 cm; Wt 95.0 kg
[2017-10-15 22:47] VITALS: BP 211/87; PULSE 60; TEMP 36.4; O2SAT 91
[2017-10-15] MEDS: DORZOLAMIDE HCL 2% OPH SOLN 10 ML BTL OPB SCH (23:18)
[2017-10-15] MEDS: CARVEDILOL 12.5 MG TAB PO SCH (23:18)
[2017-10-15] MEDS: LATANOPROST 0.005% OP SOLN 2.5 ML BTL OPB SCH (23:18)
[2017-10-15] MEDS: SODIUM CHLORIDE 0.9% 1000ML 1,000 ML IV SCH (23:29)
[2017-10-15 23:57] VITALS: BP 174/94; PULSE 66; TEMP 36.8; O2SAT 91
[2017-10-16] VITALS (7 sets, daily range): BP systolic 136–178; BP diastolic 68–79; PULSE 55–68; TEMP 36.7–36.8; O2SAT 91–95
[2017-10-16] MEDS: LEVOTHYROXINE 25 MCG TAB PO SCH (06:01)
[2017-10-16] MEDS: SUCRALFATE 1 GM TAB PO SCH ×4 (06:02→21:32)
[2017-10-16 06:54] LABS: THYROID STIMULATING HORMONE 1.84 uIu/ml (0.300-4.500)
[2017-10-16 07:30] LABS: ESTIMATED AVERAGE GLUCOSE 128 mg/dl; HA1C FLAG Normal (Normal)
[2017-10-16] MEDS: INSULIN ASPART 100 UNITS/ML 3 ML PEN SC SCH ×3 (08:20→17:50)
[2017-10-16] MEDS: CARVEDILOL 12.5 MG TAB PO SCH ×2 (08:36→19:38)
[2017-10-16] MEDS: ENOXAPARIN 40 MG/0.4 ML SYR SC SCH (08:37)
[2017-10-16] MEDS: CLOPIDOGREL BISULFATE 75 MG TAB PO SCH (08:37)
[2017-10-16] MEDS: PANTOprazole SOD 40 MG TAB PO SCH (08:37)
[2017-10-16] MEDS: DONEPEZIL HCL 5 MG TAB PO SCH (08:37)
[2017-10-16] MEDS: DORZOLAMIDE HCL 2% OPH SOLN 10 ML BTL OPB SCH ×2 (08:38→19:38)
[2017-10-16] MEDS ORDERED: LISINOPRIL 20 MG TAB PO SCH (09:00)
[2017-10-16] MEDS ORDERED: ASPIRIN 81 MG ECTAB PO SCH (09:00)
[2017-10-16] MEDS: SODIUM CHLORIDE 0.9% 1000ML 1,000 ML IV SCH (12:19)
--- NOTE | 2017-10-16 17:28 | Discharge Instructions ---
Discharge Instructions Date of Service Oct 16, 2017. Admission Reason for Admission: Altered Mental Status Discharge Discharge Diagnosis / Problem: LETHERGY /METABOLIC ENCEPHALOPAHTY / HYPERTENSIVE URGENCY Discharge Goals Goal(s): Decrease discomfort, Increase independence, Improve disease control, Therapeutic intervention Activity Recommendations Activity Limitations: resume your previous activity . Instructions / Follow-Up Instructions / Follow-Up HOSPITAL FOLLOW UP : 10/23/2017 11:20 AM Marco Kim MD Internal Medicine [facility] NEW BLOOD PRESSURE MEDICATION : NORVASC 5 MG BY MOUTH DAILY -PRESCRIPTION SENT TO [facility], HYDRALAZINE 12.5 MG TWICE DAILY LISINOPRIL 40 MG DAILY ( INCREASED DOSE FORM 30 MG DAILY ) PLEASE FOLLOW UP WITH DR MCGRATH FOR MONITORING OF YOU BLOOD PRESSURE AND ADJUST MEDICATION NEEDED METFORMIN DOSE REDUCED TO 500 MG TWICE DAILY ( WAS ON 1000MG TWICE DAILY ) FOLLOW UP WITH DR MCGRATH FOR CONTINUED DIABETIC MANAGEMENT Current Hospital Diet Patient's current hospital diet: AHA Diet (Heart Healthy), Diabetes Type 2 Diet Discharge Diet Recommended Diet: AHA Diet (Heart Healthy), Diabetes Type 2 Diet Pending Studies Studies pending at discharge: no Laboratory Results Hemoglobin A1c Test 10/16/17 05:38 Range/Units Estimated Average Glucose 128 mg/dl Hemoglobin A1c 6.1 H 4.5-5.6 % Medical Emergencies . Who to Call and When: Medical Emergencies: If at any time you feel your situation is an emergency, please call 911 immediately. . Non-Emergent Contact Non-Emergency issues call your: Primary Care Provider . . "Provider Documentation" section prepared by Kylie Mixon. . VTE Core Measure Inpt VTE Proph given/why not?: Enoxaparin (Lovenox)SQ
--- NOTE | 2017-10-16 18:08 | Progress Note ---
Internal Med Progress Note Date of Service: Oct 16, 2017. Provider Documentation: SUBJECTIVE: offers no complain , awake and alert today answering questions appropriately no complain of OBJECTIVE: Vital Signs-as noted below Exam: General-elderly male , no sign of distress Eyes-sclera non icteric , PERRLA/EOMI ENT-moist oral mucosa , normal oropharynx Neck-no JVD , trachea midline, no thyromegaly Lungs-clear to auscultate, no wheeze or rales Heart-regular S1/S2 Abdomen-soft , non tender. bowel sound active Extremities-no rash or deformity Neuro-baseline dementia, no focal neurological deficit Lab data as noted below. 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 of CVA in January 2017 on Plavix Alzheimer's dose of Aricept decreased 10mg to 5mg, to prevent lethargy follows [facility] as out pt HTN presented with Hypertensive urgency BP still remains elevated will add Norvasc 5 mg daily cont Coreg, Norvasc, Lisinopril 30 mg daily DM2 HbA1c 6.8 given pt's age -strict glycemic control may cause hypotensive episodes causing fall /confusion /lethargy insulin SSI Oral hypoglycemic should be discontinued on discharge pharmacy consulted for recommendation HLD continue statin DVT ppx Lovenox FULL CODE DISPOSITION lives a home with PT/OT eval appreciated recommend return home with family support will benefit with Home Health Visiting nurse referral made to [facility] health possible discharge home tomorrow - updated over phone Social service following for discharge planning Medicine follow up with Dr Lin Vital Signs: Date Time Temp Pulse Resp B/P (MAP) Pulse Ox O2 Delivery O2 Flow Rate FiO2 10/16/17 19:30 36.7 62 18 178/75 (109) 95 Room Air 10/16/17 19:15 36.8 56 18 93 10/16/17 16:00 93 Room Air 10/16/17 15:12 36.8 56 18 178/79 (112) 93 Room Air 10/16/17 12:00 Room Air 10/16/17 11:44 36.7 68 18 144/72 (96) 92 Room Air 10/16/17 08:00 Room Air 10/16/17 07:34 36.7 59 19 153/75 (101) 92 10/16/17 04:00 Room Air 10/16/17 03:24 36.7 55 17 136/68 (90) 91 Room Air 10/16/17 00:00 Room Air 10/15/17 23:57 36.8 66 18 174/94 (120) 91 Room Air 10/15/17 22:47 36.4 60 20 211/87 (128) 91 Room Air 10/15/17 22:40 36.5 65 20 200/42 94 Room Air 207/90 10/15/17 21:32 58 20 192/83 95 Room Air 10/15/17 20:38 62 20 179/85 94 Room Air Lab Results: Results Past 24 Hours Test 10/15/17 20:26 10/15/17 20:40 10/16/17 05:38 10/16/17 06:06 Range/Units Prothrombin Time 10.2 9.0-12.0 SECONDS Prothromb Time International Ratio 1.0 0.9-1.1 Activated Partial Thromboplast Time 26.5 21.0-31.0 SECONDS Partial Thromboplastin Ratio 1.0 Urine Color YELLOW Urine Appearance CLEAR CLEAR Urine pH 6.0 4.5-7.5 Urine Specific [place] 1.020 1.000-1.030 Urine Protein TRACE NEG Urine Glucose (UA) NEG NEG Urine Ketones TRACE NEG Urine Occult Blood NEG NEG Urine Nitrite NEG NEG Urine Bilirubin NEG NEG Urine Urobilinogen NEG NEG Urine Leukocyte Esterase TRACE NEG Urine WBC (Auto) 1-5 0-5 /hpf Urine RBC (Auto) 0-4 0-4 /hpf Urine Hyaline Casts (Auto) 1-5 0-5 /lpf Urine Epithelial Cells (Auto) 20-30 0-5 /lpf Urine Bacteria (Auto) NEG NEG Estimated Average Glucose 128 mg/dl Hemoglobin A1c 6.1 4.5-5.6 % Magnesium Level 2.0 1.8-2.4 mg/dl Vitamin B12 Level 280 211-911 pg/mL Folate 13.83 >5.38 ng/mL Thyroid Stimulating Hormone (TSH) 1.840 0.300-4.500 uIu/ml Bedside Glucose 116 70-99 mg/dl Test 10/16/17 11:18 10/16/17 16:04 Range/Units Bedside Glucose 126 93 70-99 mg/dl
[2017-10-16] MEDS ORDERED: PHARMACY GLYCEMIC MGMT CONSULT PRN (18:30)
[2017-10-16] MEDS ORDERED: AMLO-110 PO (19:56)
[2017-10-16] MEDS ORDERED: LISINOPRIL 10 MG TAB PO SCH (21:00)
[2017-10-16] MEDS ORDERED: SIMVASTATIN 40 MG TAB PO SCH (21:00)
[2017-10-16] MEDS: SIMVASTATIN 20 MG TAB PO SCH (21:32)
[2017-10-16] MEDS: LATANOPROST 0.005% OP SOLN 2.5 ML BTL OPB SCH (21:32)
[2017-10-17] VITALS (11 sets, daily range): BP systolic 153–188; BP diastolic 58–97; PULSE 58–77; TEMP 36.7–36.8; O2SAT 94–95
[2017-10-17] MEDS: LEVOTHYROXINE 25 MCG TAB PO SCH (05:58)
[2017-10-17] MEDS: SUCRALFATE 1 GM TAB PO SCH ×4 (05:58→19:30)
--- NOTE | 2017-10-17 06:38 | DIAGNOSTIC IMAGING REPORT ---
MRI OF THE BRAIN WITHOUT CONTRAST CLINICAL HISTORY: Acute change in mental status. G. Possible stroke. COMPARISON STUDY: Noncontrast head CT dated 10/15/2017 FINDINGS: Sagittal T1, axial diffusion, proton density and T2 weighted axial, coronal FLAIR, and axial T1-weighted images were acquired. No intra or extra-axial mass lesions are visualized Axial diffusion-weighted images reveal no evidence of acute or subacute infarction. There is no evidence of ventricular dilatation. Proton density T2-weighted and FLAIR images reveal scattered foci of increased T2 signal within the white matter, likely on a small vessel basis. There are scattered lacunar infarcts within the basal ganglia and thalamus. There are no abnormal flow voids. IMPRESSION: No acute intracranial findings. No evidence of intracranial mass. No evidence of acute or subacute infarction. Small vessel disease with scattered lacunar infarcts Electronically signed by: Zac Lagunas M.D. 10/17/2017 6:37 AM Dictated Date/Time: 10/17/2017 6:33 AM
[2017-10-17] MEDS ORDERED: LISINOPRIL 10 MG TAB PO SCH (08:00)
[2017-10-17] MEDS ORDERED: AMLODIPINE BESYLATE 5 MG TAB PO SCH (08:00)
[2017-10-17] MEDS: INSULIN ASPART 100 UNITS/ML 3 ML PEN SC SCH ×4 (08:59→20:11)
[2017-10-17] MEDS: CARVEDILOL 12.5 MG TAB PO SCH ×2 (09:01→19:29)
[2017-10-17] MEDS: CLOPIDOGREL BISULFATE 75 MG TAB PO SCH (09:02)
[2017-10-17] MEDS: DONEPEZIL HCL 5 MG TAB PO SCH (09:02)
[2017-10-17] MEDS: PANTOprazole SOD 40 MG TAB PO SCH (09:02)
[2017-10-17] MEDS: ENOXAPARIN 40 MG/0.4 ML SYR SC SCH (09:03)
[2017-10-17] MEDS: DORZOLAMIDE HCL 2% OPH SOLN 10 ML BTL OPB SCH ×2 (09:03→19:28)
--- NOTE | 2017-10-17 09:43 | Pharmacy Progress Note ---
Glycemic Control Intl Consult Date of Service Oct 17, 2017. Scope Glycemic Pharmacist consulted by Dr Mixon on 10/16/17 for glycemic control and to write orders per [facility] inpatient glycemic control protocol Objective Weight (Kilograms): 95.000 Accuchecks BSG (last 24hrs): Test 10/16/17 11:18 10/16/17 16:04 10/16/17 21:11 Bedside Glucose 126 mg/dl (70-99) 93 mg/dl (70-99) 103 mg/dl (70-99) HbA1c Test 10/16/17 05:38 Hemoglobin A1c 6.1 % (4.5-5.6) H Recent Pertinent Medications Outpatient Anti-diabetic Regimen: * metformin 1000 mg PO BID The patient is currently receiving: * Correctional Insulin: Not currently ordered * Prandial insulin: Not currently ordered * Oral Agents: Risk Factors for Insulin Resistance: * Diet: type 2 diabetic diet Assessment & Plan ASSESSMENT: * Mr Ray is an 81 y/o M with a PMH of Alzheimer's disease, CVA, and HTN who is admitted with altered mental status/lethargy. Yesterday, the patient received 8 units of correctional insulin and his blood sugars ranged from 93- 126 mg/dL. Dr Mixon was concerned that strict glycemic control in this patient may lead to confusion and falls. She actually discontinued Novolog yesterday. * Today, Novolog was restarted with a higher goal range and weight-based stress of 1 parameters. If the patient's blood sugar is over 200 mg/dL tonight, then a low dose of Lantus 10 units is available. Even with concern for strict glycemic control, a low dose of Lantus is appropriate for this type of patient in that situation. PLAN FOR INPATIENT GLYCEMIC CONTROL: * Holding outpatient oral diabetes medications * Basal insulin with LANTUS 9 units SQ HS if blood sugar greater than 200 mg/dL * Correctional Insulin with NOVOLOG per scale ACHS or Q6hrs while NPO * Goal Range: Low 140 mg/dL - High 180 mg/dL * Correction Factor: 45 mg/dL/unit * Nutritional / Prandial insulin per carb ratio of 1 unit per 15 grams CHO consumed OUTPATIENT DISCHARGE RECOMMENDATIONS: * Patient's HbA1C is very well controlled at 6.1%. It is reasonable to discontinue metformin if the physician is concerned about strict glycemic control (PLEASE note that metformin does not cause hypoglycemic) * recommend close follow-up if this patient is taken in case metformin can be restarted. Thank you.
[2017-10-17] MEDS ORDERED: AMLO-110 PO (11:35)
[2017-10-17] MEDS ORDERED: AMLODIPINE BESYLATE 5 MG TAB PO ONE (11:45)
[2017-10-17] MEDS ORDERED: LISINOPRIL 5 MG TAB PO ONE (15:15)
[2017-10-17] MEDS ORDERED: HydrALAZINE HCL 20 MG/ML VIAL IV. PRN (15:30)
--- NOTE | 2017-10-17 16:37 | Progress Note ---
Internal Med Progress Note Date of Service: Oct 17, 2017. Provider Documentation: SUBJECTIVE: awake and alert , conversing appropriately present BP remains elevated , given additional dose of Norvasc will cancel discharge home today cont to monitor for BP management OBJECTIVE: Vital Signs-as noted below Exam: General-elderly male , no sign of distress Eyes-sclera non icteric , PERRLA/EOMI ENT-moist oral mucosa , normal oropharynx Neck-no JVD , trachea midline, no thyromegaly Lungs-clear to auscultate, no wheeze or rales Heart-regular S1/S2 Abdomen-soft , non tender. bowel sound active Extremities-no rash or deformity Neuro-baseline dementia, no focal neurological deficit Lab data as noted below. 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, HTN, DM2, HLD, BPH presents secondary to altered mental status/lethargy HYPERTENSIVE URGENCY : BP remains persistently elevated SBP 170-180 added Norvasc -dose increased to 10 mg daily will add Hydralazine 25 mg BID cont out pt BP meds -Coreg , Lisinopril cont to monitor Lethargy/Altered Mental Status Resolved -mental status improved to baseline Metabolic encephalopathy-possible due to drug-Aricept vs Hypertensive urgency hx of recent CVA on January 2017 CT head with out contrast no evidence of CVA MRI of brain -no acute finding appreciate PT/OT and speech eval pt is now at his baseline functional status , no Dysphagia recommend return home with family support Hx. of CVA in January 2017 on Plavix no evidence of new CVA in neuroimaging this Admission Alzheimer's dose of Aricept decreased 10mg to 5mg, to prevent lethargy follows [facility] as out pt DM2 HbA1c 6.8 given pt's age -strict glycemic control may cause hypotensive episodes causing fall /confusion /lethargy insulin SSI Oral hypoglycemic Metformin 1000 mg BID discontinued on discharge appreciate pharmacy consult for recommendation HLD continue statin DVT ppx Lovenox FULL CODE DISPOSITION lives a home with PT/OT eval appreciated recommend return home with family support referral made to [facility] health hold discharge home today for elevated BP Medicine follow up with Dr Lin Vital Signs: Date Time Temp Pulse Resp B/P (MAP) Pulse Ox O2 Delivery O2 Flow Rate FiO2 10/17/17 18:41 169/76 (107) 10/17/17 17:05 67 177/84 (115) 95 Room Air 10/17/17 16:00 94 Room Air 10/17/17 15:25 182/88 (119) 188/90 (122) 10/17/17 15:12 36.8 71 18 180/82 (114) 94 Room Air 10/17/17 13:34 69 166/83 (110) 10/17/17 11:30 71 179/78 (111) 10/17/17 07:32 36.7 66 18 176/83 (114) 94 Room Air 10/17/17 07:30 Room Air 10/17/17 00:23 36.7 58 20 153/58 (89) 95 Room Air 10/16/17 23:17 Room Air Lab Results: Results Past 24 Hours Test 10/16/17 21:11 10/17/17 08:59 10/17/17 11:55 10/17/17 16:13 Range/Units Bedside Glucose 103 162 181 108 70-99 mg/dl Test 10/17/17 20:09 Range/Units Bedside Glucose 157 70-99 mg/dl Microbiology Results 10/17/17 Urine Culture, Received Pending
[2017-10-17] MEDS ORDERED: APR25 PO (19:26)
[2017-10-17] MEDS: SIMVASTATIN 20 MG TAB PO SCH (19:30)
[2017-10-17] MEDS: LATANOPROST 0.005% OP SOLN 2.5 ML BTL OPB SCH (20:09)
[2017-10-17] MEDS ORDERED: INSULIN GLARGINE SOLOSTAR 100 UNITS/ML 3 ML PEN SC SCH (22:00)
[2017-10-18] VITALS (7 sets, daily range): BP systolic 131–181; BP diastolic 73–96; PULSE 70–80; TEMP 36.6–36.8; O2SAT 92–95
[2017-10-18] MEDS ORDERED: LISINOPRIL 40 MG TAB PO ONE (02:04)
[2017-10-18] MEDS ORDERED: AMLODIPINE BESYLATE 5 MG TAB PO ONE (05:33)
[2017-10-18] MEDS: SUCRALFATE 1 GM TAB PO SCH ×4 (05:53→20:14)
[2017-10-18] MEDS: LEVOTHYROXINE 25 MCG TAB PO SCH (05:54)
[2017-10-18] MEDS ORDERED: AMLODIPINE BESYLATE 5 MG TAB PO SCH ×2 (08:00)
[2017-10-18] MEDS ORDERED: LISINOPRIL 40 MG TAB PO SCH (08:00)
[2017-10-18] MEDS: CARVEDILOL 12.5 MG TAB PO SCH ×2 (08:04→20:14)
[2017-10-18] MEDS: PANTOprazole SOD 40 MG TAB PO SCH (08:04)
[2017-10-18] MEDS: CLOPIDOGREL BISULFATE 75 MG TAB PO SCH (08:04)
[2017-10-18] MEDS: DONEPEZIL HCL 5 MG TAB PO SCH (08:04)
[2017-10-18] MEDS: DORZOLAMIDE HCL 2% OPH SOLN 10 ML BTL OPB SCH ×2 (08:05→20:11)
[2017-10-18] MEDS: ENOXAPARIN 40 MG/0.4 ML SYR SC SCH (08:05)
[2017-10-18] MEDS: INSULIN ASPART 100 UNITS/ML 3 ML PEN SC SCH ×4 (08:14→20:17)
--- NOTE | 2017-10-18 08:27 | Pharmacy Progress Note ---
Pharmacy Glycemic Short Note 2 Date of Service Oct 18, 2017. OUTPATIENT ANTIDIABETIC REGIMEN: * metformin 500 mg PO BIDM ASSESSMENT: * Mr Ray is an 81 y/o M with a PMH of Alzheimer's disease, CVA, HTN who presents with AMS and lethargy. Yesterday the patient's blood sugars ranged from 108-181 mg/dL. He received 6 units of correctional insulin. Lantus was not needed as evening blood sugar less than 200 mg/dL. This will be removed today as patient easily corrects blood sugar overnight. Resume if has blood sugars greater than 180 mg/dL x 2. * Post-breakfast, Mr Ray's blood sugar was extremely elevated at 217 mg/dL. Tightened Novolog parameters and lowered goal range. True goal is between 140- 180 mg/dL but utilized lower range in scale to achieve these blood sugars. PLAN FOR INPATIENT GLYCEMIC CONTROL: * Hold outpatient oral diabetes medications * Bolus insulin * NovoLog per scale ACHS or Q6hrs while NPO * Goal Range: Low 110 mg/dL - High 140 mg/dL * Correction Factor: 30 mg/dL/unit * Nutritional / Prandial insulin per carb ratio of 1 unit per 10 grams CHO consumed PLAN FOR DISCHARGE: * see note from 10/17/17
--- NOTE | 2017-10-18 18:52 | Progress Note ---
Internal Med Progress Note Date of Service: Oct 18, 2017. Provider Documentation: SUBJECTIVE: offers no complain feels fine no headache no visual symptoms OBJECTIVE: Vital Signs-as noted below Exam: General-elderly male , no sign of distress Eyes-sclera non icteric , PERRLA/EOMI ENT-moist oral mucosa , normal oropharynx Neck-no JVD , trachea midline, no thyromegaly Lungs-clear to auscultate, no wheeze or rales Heart-regular S1/S2 Abdomen-soft , non tender. bowel sound active Extremities-no rash or deformity Neuro-baseline dementia, no focal neurological deficit Lab data as noted below. 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, HTN, DM2, HLD, BPH presents secondary to altered mental status/lethargy HYPERTENSIVE URGENCY : cardiology consulted appreciate input antihypertensive meds adjusted Norvasc dose adjusted to 5 mg Hydralazine 12.5 mg BID increased Lisinopril to 40 mg daily ( was on 30 mg daily ) cont Coreg BP much improved after adjustments of meds pt remains asymptomatic observe overnight Lethargy/Altered Mental Status Resolved -mental status improved to baseline Metabolic encephalopathy-possible due to drug-Aricept vs Hypertensive urgency hx of recent CVA on January 2017 CT head with out contrast no evidence of CVA MRI of brain -no acute finding appreciate PT/OT and speech eval pt is now at his baseline functional status , no Dysphagia recommend return home with family support Hx. of CVA in January 2017 on Plavix no evidence of new CVA in neuroimaging this Admission Alzheimer's dose of Aricept decreased 10mg to 5mg, to prevent lethargy follows [facility] as out pt DM2 HbA1c 6.8 given pt's age -strict glycemic control may cause hypotensive episodes causing fall /confusion /lethargy insulin SSI appreciate pharmacy consult for recommendation oral Metformin has been on hold since admission may be resumed with lower dose on discharge HLD continue statin DVT ppx Lovenox FULL CODE DISPOSITION lives a home with PT/OT eval appreciated recommend return home with family support referral made to [facility] health possible discharge home tomorrow if BP remains stable Medicine follow up with Dr Lin Vital Signs: Date Time Temp Pulse Resp B/P (MAP) Pulse Ox O2 Delivery O2 Flow Rate FiO2 12/15/17 14:09 154/74 (100) 10/19/17 13:36 37.1 73 18 93 Room Air 10/19/17 07:20 37.1 73 18 164/76 (105) 93 Room Air 10/19/17 07:20 Room Air 10/19/17 00:51 36.6 74 18 128/67 (87) 92 Room Air 10/19/17 00:10 Room Air 10/18/17 21:20 76 18 138/75 (96) 92 Room Air Lab Results: Results Past 24 Hours Test 10/18/17 19:52 10/19/17 07:34 10/19/17 12:24 Range/Units Bedside Glucose 196 110 128 70-99 mg/dl
--- NOTE | 2017-10-18 19:31 | CARDIOLOGY CONSULTATION ---
DATE OF CONSULTATION: 10/18/2017 REFERRING: Dr. Mixon. PRIMARY CARE PHYSICIAN: Dr. Kim. INDICATIONS: Elevated blood pressures. HISTORY OF PRESENT ILLNESS: The patient is an 81-year-old male whose history is notable for: 1. Late onset Alzheimer's dementia. 2. 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 3. Longstanding labile hypertension. 4. Diabetes mellitus. 5. History of atrophic kidney. 6. History of benign prostatic hypertrophy. The patient is referred this admission having had change in mental status since being evaluated in the Emergency Room. In the hospital, he was noted to have labile blood pressures and had intensification of medical regimen with 2 doses of medications administered, specifically lisinopril was increased from 30 to 40 mg per day, amlodipine was initiated at 5 mg, then 10 mg this morning, in addition hydralazine was given at 25 mg twice per day. He is referred now for further assessment of blood pressures. He currently denies any complaints. Notes blood pressures do vary, though as a historian, he is relatively poor. Notes no fevers, chills or productive cough. Notes no chest pains. Notes no syncope or near syncope. Notes no unexplained fevers or infections. Notes no orthopnea. Notes no worsening peripheral edema. He is relatively sedentary about his home. ALLERGIES: None. MEDICATIONS PRIOR TO HOSPITALIZATION: Aspirin 81 mg per day, carvedilol 12.5 mg twice per day, clopidogrel 75 mg p.o. daily, Donepezil 5 mg daily, Trusopt eyedrops, Xalatan eyedrops, levothyroxine 25 mcg per day, lisinopril 30 mg p.o. daily, metformin 1000 mg b.i.d., omeprazole 20 mg b.i.d., simvastatin 20 mg q.p.m., sucralfate 1 gram q. a.c. h.s., mirabegron 50 mg p.o. daily. PAST SURGICAL HISTORY: Notable for minor procedures, prior appendectomy, prostatectomy, umbilical hernia repair and anal tag removal. FAMILY HISTORY: Notable for hypertension, diabetes, heart failure in father and mother. SOCIAL HISTORY: The patient is a retired spray ii painter. He does continue to smoke on very rare occasions. Uses rare alcoholic beverages per the patient, though again historical accuracy is limited. PHYSICAL EXAMINATION: VITAL SIGNS: His blood pressure is currently 131/76, heart rate is 72. HEENT: Normocephalic, atraumatic. Nares without discharge. Throat is clear. NECK: Without thyromegaly, lymphadenopathy, JVD. There are no carotid bruits. LUNGS: Clear to auscultation. CARDIOVASCULAR: Regular with normal S1, S2. There is no murmur, gallop or rub. ABDOMEN: Soft, nontender. There is no palpable hepatosplenomegaly. EXTREMITIES: Without cyanosis or clubbing. There is no peripheral edema. There are intact distal pulses of 2/4. DATA: Echocardiogram performed on 01/10/2017 demonstrated moderate left ventricular hypertrophy with normal left ventricular systolic function, aortic sclerosis without stenosis, trace mitral and tricuspid insufficiency, type 1 diastolic dysfunction. LABORATORY DATA THIS ADMISSION: EKG reveals sinus rhythm with left axis deviation, no acute changes, rate 77. White cell count is 4.9, hemoglobin is 14.5. Sodium is 140, potassium is 4.1, chloride is 106, bicarbonate is 29, BUN 17, creatinine 1.2. Troponin I was less than 0.015. TSH is 1.8. IMPRESSION: An 81-year-old male with history of longstanding labile hypertension, small vessel disease, and chronic and late onset Alzheimer's type dementia, admitted with mental status changes and in the course of evaluation was found to be hypertensive. He has been begun on increased dose of lisinopril and new addition of amlodipine and hydralazine. Blood pressures are trending downward further. RECOMMENDATIONS: Given the patient's history of longstanding hypertension, I would temper antihypertensive dosing, reduce the amlodipine to 5 mg once per day. Continue hydralazine at reduced dose at 12.5 mg twice per day. Continue prior lisinopril order of 40 mg per day as well as carvedilol. Expect blood pressure to come under better control after several doses of each new medication. Would not intensify therapy at this time.
[2017-10-18] MEDS: SIMVASTATIN 20 MG TAB PO SCH (20:13)
[2017-10-18] MEDS: LATANOPROST 0.005% OP SOLN 2.5 ML BTL OPB SCH (20:14)
[2017-10-19 00:51] VITALS: BP 128/67; PULSE 74; TEMP 36.6; O2SAT 92
[2017-10-19] MEDS: LEVOTHYROXINE 25 MCG TAB PO SCH (06:01)
[2017-10-19] MEDS: SUCRALFATE 1 GM TAB PO SCH ×2 (06:02→12:28)
[2017-10-19 07:20] VITALS: BP 164/76; PULSE 73; TEMP 37.1; O2SAT 93
[2017-10-19] MEDS ORDERED: AMLODIPINE BESYLATE 5 MG TAB PO SCH (08:00)
[2017-10-19] MEDS ORDERED: LISINOPRIL 40 MG TAB PO SCH (08:00)
[2017-10-19] MEDS: PANTOprazole SOD 40 MG TAB PO SCH (08:29)
[2017-10-19] MEDS: DONEPEZIL HCL 5 MG TAB PO SCH (08:29)
[2017-10-19] MEDS: CARVEDILOL 12.5 MG TAB PO SCH (08:29)
[2017-10-19] MEDS: CLOPIDOGREL BISULFATE 75 MG TAB PO SCH (08:29)
[2017-10-19] MEDS: ENOXAPARIN 40 MG/0.4 ML SYR SC SCH (08:30)
[2017-10-19] MEDS: DORZOLAMIDE HCL 2% OPH SOLN 10 ML BTL OPB SCH (08:30)
[2017-10-19] MEDS: INSULIN ASPART 100 UNITS/ML 3 ML PEN SC SCH ×2 (08:33→12:28)
--- NOTE | 2017-10-19 09:27 | Cardiology Follow-Up ---
Subjective General Date of Service: Oct 19, 2017. Chief Complaint: Hypertensive urgency Pt evaluation today including: conversation w/ patient, physical exam, chart review, lab review, review of studies, review of inpatient medication list History of Present Illness Patient seen and examined. Medications, nursing notes, and provider documentation reviewed. Blood pressures have improved with the titration of lisinopril and the addition of both amlodipine and hydralazine. Patient denies headaches, visual changes, unilateral weakness, chest pain, palpitations, dyspnea, or fluid retention. Allergies Coded Allergies: No Known Allergies (Unverified , 01/22/17) Social History Smoking Status: Never Smoker Hx Tobacco Use In Past Year?: No Hx Alcohol Use - Type And Amou: Yes (1 beer a day) Hx Substance Use - Type And Am: No Problem List Medical Problems: (1) Altered mental status Status: Acute (2) Altered mental status Status: Acute (3) Confusion Status: Acute (4) Disorientation Status: Acute (5) Substernal chest pain Status: Acute (6) TIA (transient ischemic attack) Status: Acute (7) Urinary retention Status: Acute Physical Exam Vital Signs Last Vital Signs Documentation Date Time Temp Pulse Resp B/P (MAP) Pulse Ox O2 Delivery O2 Flow Rate FiO2 10/19/17 07:20 37.1 73 18 164/76 (105) 93 Room Air Physical Exam Constitutional: Level of Distress: NAD Psychiatric: Orientation: to place, to person, not oriented to time Memory: recent memory abnormal Head: normocephalic, atraumatic Eyes: Pupils: PERRLA Neck: pertinent finding (Normal JVP) Lungs: Respiratory effort: no dyspnea Auscultation: breath sounds normal, no wheezing, no rales/crackles, no rhonchi Cardiovascular: Heart Auscultation: RRR, no rubs, no gallops, II/ RAMON Peripheral Pulses: Dorsalis Pedis Pulse: normal on the left, normal on the right Abdomen: Bowel Sounds: normal Inspection & Palpation: soft Liver: non-tender Extremities: no cyanosis, no edema, no clubbing Neurologic: Cranial Nerves: grossly intact Assessment and Plan Assessment and Plan Admission with altered mental status, hypertensive urgency History of longstanding labile hypertension, hypertensive heart disease, small vessel CVA. Dyslipidemia, on statin Alzheimer's type dementia Type II diabetes mellitus RECOMMENDATIONS/PLAN: Continue as presently prescribed Lisinopril increased this admission. Amlodipine (5 mg/day) and hydralazine ( 12.5 mg BID) added this admission Continue Carvedilol, ASA, and statin. If blood pressures are excessive down the road would likely increase Carvedilol dosing prior to Hydralazine Assessment as above. Blood pressures improved. Plan as outlined Román Gill MD Laboratory Results Last 24 Hours Test 10/18/17 11:00 10/18/17 16:31 10/18/17 19:52 10/19/17 07:34 Bedside Glucose 217 mg/dl 108 mg/dl 196 mg/dl 110 mg/dl
--- NOTE | 2017-10-19 12:01 | Pharmacy Progress Note ---
Pharmacy Glycemic Short Note 2 Date of Service Oct 19, 2017. OUTPATIENT ANTIDIABETIC REGIMEN: * Metformin 1,000mg PO BIDM ASSESSMENT: * Patient is receiving SQ bolus insulin monotherapy while outpatient antidiabetic agent on hold * BSGs over the past 24hrs: * 10/18: 120, 217, 108, 196 * 10/19: 110 * Pt has received 13 units over the past 24hrs (all prandial/correctional insulin) * AM fasting BSGs are in goal range: 120 yesterday and 110 today. No basal insulin needed * Post prandial BSGs are in range based on age/comorbidities with tightened CF/ CR yesterday * No changes needed at this time. PLAN FOR INPATIENT GLYCEMIC CONTROL: * Hold outpatient oral diabetes medications * Basal insulin * N/A: none needed * Bolus insulin * NovoLog per scale ACHS or Q6hrs while NPO * Goal Range: Low 110 mg/dL - High 140 mg/dL * Correction Factor: 30 mg/dL/unit * Nutritional / Prandial insulin per carb ratio of 1 unit per 10 grams CHO consumed PLAN FOR DISCHARGE: * A1c = 6.1% * This is in goal range (possibly too stringent control based on age/co- morbidities) * No changes needed - may resume prior antidiabetic regimen at discharge
[2017-10-19] MEDS ORDERED: APR25 PO (13:12)
[2017-10-19] MEDS ORDERED: NRV5 PO (13:12)
[2017-10-19] MEDS ORDERED: LSN40 PO (13:12)
[2017-10-19] MEDS ORDERED: GLC500 PO (13:14)
[2017-10-19 13:36] VITALS: BP 164/76; PULSE 73; TEMP 37.1; O2SAT 93
[2017-10-19 14:09] VITALS: BP 154/74
--- NOTE | 2017-10-19 18:53 | Discharge Summary ---
Discharge Summary Date of Service Oct 19, 2017. Discharge Summary Admission Date: Oct 15, 2017 at 21:18 Discharge Date: Oct 19, 2017 Discharge Disposition: Home with services Principal Diagnosis: LETHARGY /METABOLIC ENCEPHALOPATHY /HYPERTENSIVE URGENCY Procedures: MRI OF BRAIN : IMPRESSION: No acute intracranial findings. No evidence of intracranial mass. No evidence of acute or subacute infarction. Small vessel disease with scattered lacunar infarcts CT OF BRAIN WITHOUT IV CONTRAST : IMPRESSION: Senescent changes as above with no hemorrhage, mass effect, or evidence of acute territorial ischemia by CT criteria. Consultations: [facility] Medication Reconciliation New Medications: Metformin HCl (Metformin HCl) 500 Mg Tab 1 TAB PO BID for 30 Days, #60 TABS 2 Refills Amlodipine Besylate (Amlodipine Besylate) 5 Mg Tab 5 MG PO QAM for 30 Days, #30 TAB 2 Refills Hydralazine Hcl (Apresoline) 25 Mg Tab 12.5 MG PO BID for 30 Days, #15 TAB 2 Refills Lisinopril (Lisinopril) 40 Mg Tab 40 MG PO DAILY for 30 Days, #30 TAB 2 Refills Continued Medications: Carvedilol (Coreg) 12.5 Mg Tab 12.5 MG PO BID, TAB Clopidogrel (Plavix) 75 Mg Tab 75 MG PO DAILY, TAB Donepezil Hydrochloride (Donepezil Hcl) 5 Mg Tab 5 MG PO DAILY TAKE THIS MED WITH THE LARGEST MEAL OF THE DAY. Dorzolamide Hcl (Trusopt Oph) 2 % Tosha 1 DROPS OPB BID, #10 ML 3 Refills Latanoprost (Xalatan 0.005% Oph Tosha) 0.005 % Tosha 1 DROPS OPB HS Levothyroxine Sodium (Synthroid) 25 Mcg Tab 25 MCG PO DAILY Mirabegron (Myrbetriq Er) 50 Mg Tab 50 MG PO DAILY, TAB Omeprazole (Prilosec) 20 Mg Capcr 20 MG PO BID, CAP TAKE THIS MED TWICE DAILY, 30 MINUTES BEFORE MEALS. Simvastatin (Zocor) 20 Mg Tab 20 MG PO QPM, TAB Sucralfate (Sucralfate) 1 Gm Tab 1 GM PO ACHS, TAB Discontinued Medications: Aspirin (Aspirin Chewable) 81 Mg Chew 81 MG PO DAILY, TAB Metformin Hcl (Glucophage) 1,000 Mg Tab 1000 MG PO BIDM, TAB TAKE WITH AM AND EVENING MEALS. Referrals At Discharge Follow up Referrals: Physician Referral - 10/23/17 with Marco Kim M.D. Admission Information HPI (per Admitting provider): This is a 81 year old male with a PMH of Alzheimer's dementia, hx. of small vessel CVA in January 2017, HTN, DM2, HLD, BPH presents secondary to altered mental status. As per , he has been more lethargic, especially this morning. states that she called neurology earlier in the day and was told to decrease the dose of Aricept from 10mg to 5mg. This dose was increased in September 2017. A neighbor, who is also at bedside, states that he continued to be very lethargic and could not even stand for EMS. At baseline, he is ambulatory. He was brought to the ED and nursing noted possibly facial droop. Head CT was performed and labwork was done suggesting no acute process. On exam , no neurological deficits noted. states she takes care of him at home, but may require help at times. Otherwise, patient has no complaints at this time. Denies any pain or shortness of breath; denies palpitations, no motor weakness. No other issues to note. 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, no motor/sensory deficits, alert , normal mood/affect, oriented x 3 Skin: normal color Lymphatic: no adenopathy Hospital Course Blood pressure much improved today offers no complain , comfortable , no confusion ,no headache , no visual disturbance present at bedside P/E: Exam: General-elderly male , well appearing no sign of distress Eyes-sclera non icteric , PERRLA/EOMI ENT-moist oral mucosa , normal oropharynx Neck-no JVD , trachea midline, no thyromegaly Lungs-clear to auscultate, no wheeze or rales Heart-regular S1/S2, no JVD , no lower ext edema , no carotid bruit Abdomen-soft , non tender. bowel sound active Extremities-no rash or deformity Neuro-Awake and alert , oriented, answering questions appropriately ,no confusion , no focal neurological deficit HYPERTENSIVE URGENCY : resolved BP improved after adjusting antihypertensive meds cardiology consulted appreciate input pt is now Norvasc dose 5 mg daily ( new med ) added Hydralazine 12.5 mg BID increased Lisinopril to 40 mg daily ( was on 30 mg daily ) cont Coreg SBP in 130-140's with above regimen stable to be discharged home today updated regarding medication changes Lethargy/Altered Mental Status Resolved -mental status improved to baseline awake and alert , conversing appropriately Metabolic encephalopathy-possible due to drug-Aricept vs Hypertensive urgency hx of recent CVA on January 2017 CT head with out contrast no evidence of CVA MRI of brain -no acute finding appreciate PT/OT and speech eval pt is now at his baseline functional status , no Dysphagia recommend return home with family support Hx. of CVA in January 2017 on Plavix no evidence of new CVA in neuroimaging this Admission Alzheimer's dose of Aricept decreased 10mg to 5mg, to prevent [facility]argy [facility] DM2 HbA1c 6.8 given pt's age -strict glycemic control may cause hypotensive episodes causing fall /confusion /lethargy insulin SSI appreciate pharmacy consult for recommendation oral Metformin has been on hold since admission resumed with lower dose 500 mg BID on discharge ( was on 1000 mg BI ) HLD continue statin DVT ppx Lovenox FULL CODE DISPOSITION stable to be discharged home with home health today referral made to [facility] Medicine follow up with Dr Mcgrath Discharge Instructions Discharge Instructions Date of Service Oct 16, 2017. Admission Reason for Admission: Altered Mental Status Discharge Discharge Diagnosis / Problem: LETHARGY /METABOLIC ENCEPHALOPATHY / HYPERTENSIVE URGENCY Discharge Goals Goal(s): Decrease discomfort, Increase independence, Improve disease control, Therapeutic intervention Activity Recommendations Activity Limitations: resume your previous activity . Instructions / Follow-Up Instructions / Follow-Up HOSPITAL FOLLOW UP : 10/23/2017 11:20 AM Marco Kim MD Internal Medicine [facility] NEW BLOOD PRESSURE MEDICATION : NORVASC 5 MG BY MOUTH DAILY -PRESCRIPTION SENT TO [facility], HYDRALAZINE 12.5 MG TWICE DAILY LISINOPRIL 40 MG DAILY ( INCREASED DOSE FORM 30 MG DAILY ) PLEASE FOLLOW UP WITH DR MCGRATH FOR MONITORING OF YOU BLOOD PRESSURE AND ADJUST MEDICATION NEEDED METFORMIN DOSE REDUCED TO 500 MG TWICE DAILY ( WAS ON 1000MG TWICE DAILY ) FOLLOW UP WITH DR MCGRATH FOR CONTINUED DIABETIC MANAGEMENT Current Hospital Diet Patient's current hospital diet: AHA Diet (Heart Healthy), Diabetes Type 2 Diet Discharge Diet Recommended Diet: AHA Diet (Heart Healthy), Diabetes Type 2 Diet Pending Studies Studies pending at discharge: no Laboratory Results Hemoglobin A1c Test 10/16/17 05:38 Range/Units Estimated Average Glucose 128 mg/dl Hemoglobin A1c 6.1 H 4.5-5.6 % Medical Emergencies . Who to Call and When: Medical Emergencies: If at any time you feel your situation is an emergency, please call 911 immediately. . Non-Emergent Contact Non-Emergency issues call your: Primary Care Provider . . "Provider Documentation" section prepared by Kylie Mixon. . VTE Core Measure Inpt VTE Proph given/why not?: Enoxaparin (Lovenox)SQ Additional Copies To Marco Kim M.D. Román Gill M.D.
== END 2017-10-19 14:20 | disposition home or self-care (01) ==
LOC: EDBD 19:12 → C.EDB 19:14 → C.2T 21:18 → ENRESERV 21:30 → C.MS4W 10-16 19:23
PROVIDERS: ADMIT Family Medicine; ATTEND Hospitalist
DX: R53.83 Other fatigue (principal); G93.41 Metabolic encephalopathy; I16.0 Hypertensive urgency; G30.9 Alzheimer's disease, unspecified; F02.80 Dementia in other diseases classified elsewhere, unspecified severity, without behavioral disturbance, psychotic disturbance, mood disturbance, and anxiety; E78.5 Hyperlipidemia, unspecified; E11.9 Type 2 diabetes mellitus without complications; Z87.891 Personal history of nicotine dependence; Z82.49 Family history of ischemic heart disease and other diseases of the circulatory system; Z79.82 Long term (current) use of aspirin; Z79.84 Long term (current) use of oral hypoglycemic drugs; Z79.899 Other long term (current) drug therapy; N40.0 Benign prostatic hyperplasia without lower urinary tract symptoms; Z86.73 Personal history of transient ischemic attack (TIA), and cerebral infarction without residual deficits

== ENCOUNTER 2017-10-20 21:47 | Emergency (ER) | payer OTHER ==
[~2017-10-20] VITALS: Ht 180.3 cm; Wt 94.1 kg
[~2017-10-20 21:47] MED LIST changes: +APR25 PO; -ASPCH81X PO; +DONE1TAB25 PO; -GLC/500 PO; +GLC500 PO; -LISI-725 PO; -LISI10TA PO; +LSN40 PO; +MIRA1TAB3 PO; +NRV5 PO; +SIMV20TA2 PO; -SIMV40TA2 PO
[2017-10-20 21:51] VITALS: TEMP 36.5; Ht 180.3 cm; Wt 94.1 kg
[2017-10-20 22:02] VITALS: O2SAT 96
[2017-10-20] MEDS ORDERED: CLONIDINE HCL 0.1 MG TAB PO ONE (22:45)
[2017-10-20 22:56] LABS: BASO % 0.5 %; BASO ABS # 0.02 K/uL (0-0.2); COMPLETE YES; EOS % 3.1 %; HEMATOCRIT 42.5 % (42-52); IG% 0.5 %; LYMPH % 26.9 %; LYMPH ABS # 1.14 K/uL (1.2-3.4); MEAN CELL VOLUME 86.2 fL (80-100); MEAN CORPUSCULAR HEMOGLOBIN 29.8 pg (25-34); MEAN CORPUSCULAR HGB CONC 34.6 g/dl (32-36); MONO % 9.9 %; NEUT % 59.1 %; PLATELET COUNT 154 K/uL (130-400); RED BLOOD COUNT 4.93 M/uL (4.7-6.1); WHITE BLOOD COUNT 4.24 K/uL (4.8-10.8)
--- NOTE | 2017-10-20 22:57 | DIAGNOSTIC IMAGING REPORT ---
CHEST ONE VIEW PORTABLE HISTORY: Evaluate Fever/Sepsis COMPARISON: Chest 10/15/2017. FINDINGS: Bilateral calcified pleural plaques are again noted. No pneumothorax. No pleural effusions. The heart remains mildly enlarged. No evidence for pulmonary edema. No new focal lung consolidations to suggest pneumonia. IMPRESSION: No significant change compared to the prior study. No acute process. Cardiomegaly and bilateral calcified pleural plaques are again noted. Electronically signed by: José Luis Lockhart M.D. 10/20/2017 10:56 PM Dictated Date/Time: 10/20/2017 10:55 PM
[2017-10-20 23:04] LABS: ALT/SGPT 39 U/L (12-78); BLOOD UREA NITROGEN 24 mg/dl (7-18); BUN/CREATININE RATIO 23.1 (10-20); CALCIUM 8.8 mg/dl (8.5-10.1); CARBON DIOXIDE 27 mmol/L (21-32); CHLORIDE 106 mmol/L (98-107); CREATININE 1.04 mg/dl (0.60-1.40); GLUCOSE 141 mg/dl (70-99); POTASSIUM 3.8 mmol/L (3.5-5.1); SODIUM 138 mmol/L (136-145)
[2017-10-20 23:05] LABS: INR 0.9 (0.9-1.1); PROTHROMBIN TIME (PATIENT) 9.8 SECONDS (9.0-12.0)
[2017-10-20 23:09] LABS: ALKALINE PHOSPHATASE 74 U/L (45-117); AST/SGOT 20 U/L (15-37)
[2017-10-20 23:34] VITALS: BP 161/85; PULSE 60; O2SAT 97
--- NOTE | 2017-10-20 23:38 | EMERGENCY ROOM VISIT NOTE ---
History Report prepared by Amanda: Jessi Bowser Under the Supervision of: Dr. Tello Holbrook D.O. First contact with patient: 22:14 Chief Complaint: HYPERTENSION Stated Complaint: HTN History of Present Illness The patient is a 81 year old male who presents to the Emergency Room with complaints of constant hypertension beginning today. The patient states that she was seen here in the hospital for hypertension for the last 3 days and was discharged this morning. He notes that since he returned home today his blood pressure has remained high. He reports that his blood pressure was 235 at its highest today. He notes a history of CVA, HTN, and diabetes. He denies any chest pain, shortness of breath, and headaches. He notes that he is on Plavix. Source of History: patient Onset: today Position: other (global) Symptom Intensity: 235 Quality: other (HTN) Timing: constant Associated Symptoms: No headache, No chest pain, No SOB Review of Systems See HPI for pertinent positives & negatives. A total of 10 systems reviewed and were otherwise negative. Past Medical & Surgical Medical Problems: (1) Encephalopathy Surgical Problems: (1) History of prostate surgery Family History Diabetes mellitus Heart disease Hypertension Social History Smoking Status: Former Smoker Marital Status: Housing Status: lives with family Current/Historical Medications Scheduled Amlodipine Besylate (Amlodipine Besylate), 5 MG PO QAM Carvedilol (Coreg), 12.5 MG PO BID Clopidogrel (Plavix), 75 MG PO DAILY Donepezil Hydrochloride (Donepezil Hcl), 5 MG PO DAILY Dorzolamide Hcl (Trusopt Oph), 1 DROPS OPB BID Hydralazine Hcl (Apresoline), 12.5 MG PO BID Latanoprost (Xalatan 0.005% Oph Tosha), 1 DROPS OPB HS Levothyroxine Sodium (Synthroid), 25 MCG PO DAILY Lisinopril (Lisinopril), 40 MG PO DAILY Metformin HCl (Metformin HCl), 1 TAB PO BID Mirabegron (Myrbetriq Er), 50 MG PO DAILY Omeprazole (Prilosec), 20 MG PO BID Simvastatin (Zocor), 20 MG PO QPM Sucralfate (Sucralfate), 1 GM PO ACHS Allergies Coded Allergies: No Known Allergies (Unverified , 10/20/17) Physical Exam Vital Signs Date Time Temp Pulse Resp B/P (MAP) Pulse Ox O2 Delivery O2 Flow Rate FiO2 10/20/17 23:34 60 18 161/85 97 Room Air 10/20/17 22:42 60 18 165/87 96 Room Air 10/20/17 22:16 61 18 175/78 98 Room Air 10/20/17 22:02 96 Nasal Cannula 10/20/17 22:02 60 10/20/17 21:51 36.5 62 18 202/84 95 Room Air Physical Exam CONSTITUTIONAL/VITAL SIGNS: Reviewed / noted above. GENERAL: Non-toxic in appearance. INTEGUMENTARY: Warm, dry, and [place]. HEAD: Normocephalic. EYES: without scleral icterus or trauma. ENT/OROPHARYNX: clear and moist. LYMPHADENOPATHY/NECK: Is supple without lymphadenopathy or meningismus. RESPIRATORY: Lungs clear and equal. CARDIOVASCULAR: Regular rate and rhythm. GI/ABDOMEN: Soft and nontender. No organomegaly or pulsatile mass. No rebound or guarding. Normal bowel sounds. EXTREMITIES: Warm and well perfused. BACK: No CVA tenderness. NEUROLOGICAL: Intact without focal deficits. PSYCHIATRIC: normal affect. MUSCULOSKELETAL: Normally developed with good muscle tone. Medical Decision & Procedures ER Provider Diagnostic Interpretation: Radiology results as stated below per my review and radiologist interpretation: CHEST ONE VIEW PORTABLE FINDINGS: Bilateral calcified pleural plaques are again noted. No pneumothorax. No pleural effusions. The heart remains mildly enlarged. No evidence for pulmonary edema. No new focal lung consolidations to suggest pneumonia. IMPRESSION: No significant change compared to the prior study. No acute process. Cardiomegaly and bilateral calcified pleural plaques are again noted. Electronically signed by: José Luis Lockhart M.D. 10/20/2017 10:56 PM Dictated Date/Time: 10/20/2017 10:55 PM Laboratory Results 10/20/17 21:55 Red Blood Count 4.93, Mean Corpuscular Volume 86.2, Mean Corpuscular Hemoglobin 29.8, Mean Corpuscular Hemoglobin Concent 34.6, Mean Platelet Volume 9.0, Neutrophils (%) (Auto) 59.1, Lymphocytes (%) (Auto) 26.9, Monocytes (%) (Auto) 9.9, Eosinophils (%) (Auto) 3.1, Basophils (%) (Auto) 0.5, Neutrophils # (Auto) 2.51, Lymphocytes # (Auto) 1.14, Monocytes # (Auto) 0.42, Eosinophils # (Auto) 0.13, Basophils # (Auto) 0.02 10/20/17 21:55 Test 10/20/17 21:55 White Blood Count 4.24 K/uL (4.8-10.8) Red Blood Count 4.93 M/uL (4.7-6.1) Hemoglobin 14.7 g/dL (14.0-18.0) Hematocrit 42.5 % (42-52) Mean Corpuscular Volume 86.2 fL (80-100) Mean Corpuscular Hemoglobin 29.8 pg (25-34) Mean Corpuscular Hemoglobin Concent 34.6 g/dl (32-36) Platelet Count 154 K/uL (130-400) Mean Platelet Volume 9.0 fL (7.4-10.4) Neutrophils (%) (Auto) 59.1 % Lymphocytes (%) (Auto) 26.9 % Monocytes (%) (Auto) 9.9 % Eosinophils (%) (Auto) 3.1 % Basophils (%) (Auto) 0.5 % Neutrophils # (Auto) 2.51 K/uL (1.4-6.5) Lymphocytes # (Auto) 1.14 K/uL (1.2-3.4) Monocytes # (Auto) 0.42 K/uL (0.11-0.59) Eosinophils # (Auto) 0.13 K/uL (0-0.5) Basophils # (Auto) 0.02 K/uL (0-0.2) RDW Standard Deviation 44.4 fL (36.4-46.3) RDW Coefficient of Variation 14.3 % (11.5-14.5) Immature Granulocyte % (Auto) 0.5 % Immature Granulocyte # (Auto) 0.02 K/uL (0.00-0.02) Prothrombin Time 9.8 SECONDS (9.0-12.0) Prothromb Time International Ratio 0.9 (0.9-1.1) Activated Partial Thromboplast Time 27.1 SECONDS (21.0-31.0) Partial Thromboplastin Ratio 1.0 Anion Gap 6.0 mmol/L (3-11) Est Creatinine Clear Calc Drug Dose 66.3 ml/min Estimated GFR () 78.2 Estimated GFR (Non- 67.5 BUN/Creatinine Ratio 23.1 (10-20) Calcium Level 8.8 mg/dl (8.5-10.1) Total Bilirubin 1.0 mg/dl (0.2-1) Direct Bilirubin 0.2 mg/dl (0-0.2) Aspartate Amino Transf (AST/SGOT) 20 U/L (15-37) Alanine Aminotransferase (ALT/SGPT) 39 U/L (12-78) Alkaline Phosphatase 74 U/L (45-117) Total Creatine Kinase 20 U/L (39-308) Creatine Kinase MB 0.6 ng/ml (0.5-3.6) Creatine Kinase MB Ratio 3.0 (0-3.0) Troponin I < 0.015 ng/ml (0-0.045) Total Protein 7.3 gm/dl (6.4-8.2) Albumin 3.5 gm/dl (3.4-5.0) Laboratory results as stated above per my review. ECG Indication: other Rate (beats per minute): 62 Rhythm: normal sinus Findings: no acute ischemic change, no ectopy ED Course 2214: Previous medical records were reviewed. The patient was evaluated in room B10. A complete history and physical examination was performed. 2245: Catapres Tab 0.2mg PO. 2341: On reevaluation, the patient is doing well. I discussed the results and findings with the patient. He verbalized agreement of the treatment plan. The patient was discharged home. Medical Decision Differential includes acute coronary syndrome, myocardial infarction, CVA, TIA, anemia, infection, pneumonia, UTI, pyelonephritis, poor nutrition, dehydration, electrolyte disturbance,hypoglycemia. This is a 81-year-old male who presents to the ED with a chief complaint of hypertension. The patient is asymptomatic. He states that he checked his blood pressure tonight and was over 200. He came to the ED for evaluation. He denies any headaches, fevers, chest pains, shortness of breath or abdominal pains. Denies any focal neurologic deficits. Initial blood pressure when he came in was 202/84. When I saw him in the room it was 165 or 87. His exam was normal. CBC and complete metabolic panel unremarkable. Troponin was negative. EKG shows normal sinus rhythm at a rate of 62. The patient was told results. He was recently discharged from the hospital 2 days ago and started on 3 new blood pressure medications. He was advised to continue these and follow-up with his PCP for blood pressure recheck. Medication Reconcilliation Current Medication List: was personally reviewed by me Blood Pressure Screening Patient's blood pressure: Elevated blood pressure Blood pressure disposition: Referred to PCP Impression Primary Impression: Hypertension Scribe Attestation The scribe's documentation has been prepared under my direction and personally reviewed by me in its entirety. I confirm that the note above accurately reflects all work, treatment, procedures, and medical decision making performed by me. Departure Information Dispostion Home / Self-Care Referrals Marco Kim M.D. (PCP) Patient Instructions My [facility] Additional Instructions Continue your daily medications. See a doctor for recheck this week to have blood pressure rechecked.
== END 2017-10-21 00:04 | disposition home or self-care (01) ==
LOC: EDBD 21:47 → C.EDB 21:48
DX: I10 Essential (primary) hypertension (principal); G93.40 Encephalopathy, unspecified; Z98.890 Other specified postprocedural states; Z87.891 Personal history of nicotine dependence; Z79.899 Other long term (current) drug therapy; Z83.3 Family history of diabetes mellitus; Z82.49 Family history of ischemic heart disease and other diseases of the circulatory system

== ENCOUNTER 2018-03-19 13:07 | Emergency (ER) | payer OTHER ==
[~2018-03-19 13:07] MED LIST changes: -DORZ2SOL17 OPB; +DORZ2SOL19 OPB
[2018-03-19 13:13] VITALS: TEMP 36.4
[2018-03-19] MEDS ORDERED: SODIUM CHLORIDE 0.9% 500ML 500 ML IV STA (13:37)
[2018-03-19 14:07] LABS: BASO % 0.2 %; BASO ABS # 0.01 K/uL (0-0.2); EOS % 2.3 %; EOS ABS # 0.11 K/uL (0-0.5); HEMATOCRIT 39.6 % (42-52); HEMOGLOBIN 13.8 g/dL (14.0-18.0); IG# 0.04 K/uL (0.00-0.02); LYMPH % 19.9 %; LYMPH ABS # 0.96 K/uL (1.2-3.4); MEAN CELL VOLUME 82.2 fL (80-100); MEAN CORPUSCULAR HEMOGLOBIN 28.6 pg (25-34); MEAN CORPUSCULAR HGB CONC 34.8 g/dl (32-36); MEAN PLATELET VOLUME 8.4 fL (7.4-10.4); MONO % 8.1 %; MONO ABS # 0.39 K/uL (0.11-0.59); NEUT % 68.7 %; NEUT ABS # 3.31 K/uL (1.4-6.5); PLATELET COUNT 217 K/uL (130-400); RED CELL DISTRIBUTION WIDTH CV 14.5 % (11.5-14.5); RED CELL DISTRIBUTION WIDTH SD 43.4 fL (36.4-46.3); WHITE BLOOD COUNT 4.82 K/uL (4.8-10.8)
[2018-03-19 14:30] LABS: ALBUMIN 3.1 gm/dl (3.4-5.0); ALT/SGPT 18 U/L (12-78); AST/SGOT 12 U/L (15-37); BLOOD UREA NITROGEN 19 mg/dl (7-18); CALCIUM 8.8 mg/dl (8.5-10.1); CARBON DIOXIDE 25 mmol/L (21-32); CREATININE 0.98 mg/dl (0.60-1.40); GLUCOSE 131 mg/dl (70-99); POTASSIUM 3.9 mmol/L (3.5-5.1); SODIUM 139 mmol/L (136-145)
[2018-03-19 14:39] LABS: ALKALINE PHOSPHATASE 77 U/L (45-117); TOTAL PROTEIN 7.4 gm/dl (6.4-8.2)
[2018-03-19] MEDS ORDERED: VSC/5 PO (14:39)
[2018-03-19] MEDS ORDERED: AMLO-110 PO (14:39)
[2018-03-19] MEDS ORDERED: LISI40TA PO (14:39)
[2018-03-19] MEDS ORDERED: OMEG500C2 PO (14:39)
[2018-03-19] MEDS ORDERED: APR25 PO (14:39)
[2018-03-19] MEDS ORDERED: GLC/500 PO (14:39)
[2018-03-19] MEDS ORDERED: DICL1TAB5 PO (14:41)
--- NOTE | 2018-03-19 14:46 | DIAGNOSTIC IMAGING REPORT ---
RIGHT SHOULDER 3 VIEWS HISTORY: Right shoulder pain. COMPARISON: None. FINDINGS: There is no fracture or dislocation. Soft tissues are unremarkable. The right clavicle is intact. There calcified pleural plaques within the right midlung zone. Cartilage spaces are maintained for age. IMPRESSION: No fracture or dislocation within the right shoulder. Electronically signed by: José Luis Lockhart M.D. 03/19/2018 2:44 PM Dictated Date/Time: 03/19/2018 2:28 PM
--- NOTE | 2018-03-19 14:47 | DIAGNOSTIC IMAGING REPORT ---
CHEST 2 VIEWS ROUTINE CLINICAL HISTORY: Shortness of breath. COMPARISON STUDY: 10/20/2017 FINDINGS: The heart is mildly enlarged. There is aortic tortuosity/ectasia. There are bilateral calcified pleural plaques. There is no acute parenchymal consolidation. There is no failure. There are no pleural effusions.[ IMPRESSION: No significant change. Stable cardiomegaly. Stable calcified pleural plaques. No acute parenchymal consolidation. Electronically signed by: Zac Lagunas M.D. 03/19/2018 2:45 PM Dictated Date/Time: 03/19/2018 2:45 PM
[2018-03-19] MEDS ORDERED: OXYCODONE HCL IR 5 MG TAB (IMMEDIATE RELEASE) PO STA (14:49)
[2018-03-19 15:01] LABS: PTT PATIENT 30.5 SECONDS (21.0-31.0)
[2018-03-19 15:06] VITALS: BP 164/84; PULSE 64; O2SAT 96
--- NOTE | 2018-03-19 19:09 | EMERGENCY ROOM VISIT NOTE ---
History Report prepared by Amanda: Esequiel Davidson Under the Supervision of: Dr. Yusuf Mcgill M.D. First contact with patient: 13:26 Chief Complaint: SHOULDER PAIN Stated Complaint: PAIN IN SHOULDERS AND LEGS History of Present Illness The patient is an 82 year old male with a history of a stroke who presents to the Emergency Room with complaints of worsening joint pain that started 6 months ago. He states that he has "muscle aches all over", and he has pain in his bilateral shoulders, hips, and legs. The patient says that his right shoulder hurts the most currently. He notes that he "feels warm" but has had no recorded fever. The patient was given pain medicine (Diclofenac) by his primary care physician (Dr. Kim) for this pain, but it is not really helping. He was not tested for Lyme disease or any other etiologies. The patient states that he feels really weak, and per the patient's , the patient can hardly walk around now due to the soreness and pain. The patient adds that he has not been eating or drinking well, and he has been a bit short of breath. He notes that he has had headaches as well. The patient denies any rashes, chest pain, vomiting, abdominal pain, diarrhea, joint swelling, joint redness, or tick bites. Source of History: patient, spouse/significant other Onset: 6 months ago Position: other (global) Symptom Intensity: can hardly walk Quality: other (joint pain to bilateral shoulders, hips, legs) Timing: worsening Associated Symptoms: + headache, + SOB, + weakness, No chest pain, No vomiting, No diarrhea, No rash Note: Associated symptoms: Feels warm. Denies joint swelling, joint redness, or tick bites. Review of Systems See HPI for pertinent positives & negatives. A total of 10 systems reviewed and were otherwise negative. Past Medical & Surgical Medical Problems: (1) Encephalopathy Surgical Problems: (1) History of prostate surgery Family History Diabetes mellitus Heart disease Hypertension Social History Smoking Status: Former Smoker Marital Status: Housing Status: lives with family Current/Historical Medications Scheduled Amlodipine (Norvasc), 5 MG PO DAILY Carvedilol (Coreg), 12.5 MG PO BID Clopidogrel (Plavix), 75 MG PO DAILY Donepezil Hydrochloride (Donepezil Hcl), 5 MG PO DAILY Dorzolamide Hcl (Trusopt Oph), 1 DROPS OPB BID Hydralazine Hcl (Apresoline), 25 MG PO BID Latanoprost (Xalatan 0.005% Oph [place]ha), 1 DROPS OPB HS Levothyroxine Sodium (Synthroid), 25 MCG PO DAILY Lisinopril (Zestril), 40 MG PO DAILY Metformin Hcl (Glucophage), 500 MG PO BID [place]-3 Fatty Acids (Fish Oil), 500 MG PO DAILY Omeprazole (Prilosec), 20 MG PO BID Simvastatin (Zocor), 20 MG PO QPM Solifenacin (Vesicare), 5 MG PO DAILY Sucralfate (Sucralfate), 1 GM PO ACHS Scheduled PRN Diclofenac Sodium (Diclofenac Sodium Dr), 50 MG PO TID PRN for Pain Allergies Coded Allergies: No Known Allergies (Unverified , 10/20/17) Physical Exam Vital Signs Date Time Temp Pulse Resp B/P (MAP) Pulse Ox O2 Delivery O2 Flow Rate FiO2 03/19/18 15:06 64 18 164/84 96 Room Air 03/19/18 13:13 36.4 66 20 136/57 93 Room Air Physical Exam Constitutional: Vital signs reviewed. Eyes: Pupils are equal round reactive to light. Conjunctiva are noninjected. ENT: Pharynx is clear without erythema or exudate. Mucous membranes are dry. Neck supple without meningeal signs. Respiratory: Clear to auscultation bilaterally. Breath sounds are equal bilaterally. Cardiovascular: Regular rate and rhythm. No rubs or gallops. GI: Soft, nondistended and nontender. Bowel sounds are present. Musculoskeletal: No peripheral edema. Point tenderness to the anterior right shoulder. Mild tenderness to the left shoulder. No swelling or erythema to the joints in the upper or lower extremities including the hips. Integumentary: No cyanosis. Neurological: The patient is awake and alert. No focal deficits. Psychiatric: Normal affect. Medical Decision & Procedures ER Provider Diagnostic Interpretation: X-ray results as stated below per interpretation by me and the radiologist: RIGHT SHOULDER 3 VIEWS HISTORY: Right shoulder pain. COMPARISON: None. FINDINGS: There is no fracture or dislocation. Soft tissues are unremarkable. The right clavicle is intact. There calcified pleural plaques within the right midlung zone. Cartilage spaces are maintained for age. IMPRESSION: No fracture or dislocation within the right shoulder. Electronically signed by: José Luis Lockhart M.D. 03/19/2018 2:44 PM Dictated Date/Time: 03/19/2018 2:28 PM CHEST 2 VIEWS ROUTINE CLINICAL HISTORY: Shortness of breath. COMPARISON STUDY: 10/20/2017 FINDINGS: The heart is mildly enlarged. There is aortic tortuosity/ectasia. There are bilateral calcified pleural plaques. There is no acute parenchymal consolidation. There is no failure. There are no pleural effusions.[ IMPRESSION: No significant change. Stable cardiomegaly. Stable calcified pleural plaques. No acute parenchymal consolidation. Electronically signed by: Zac Lagunas M.D. 03/19/2018 2:45 PM Dictated Date/Time: 03/19/2018 2:45 PM Laboratory Results 03/19/18 13:55 Red Blood Count 4.82, Mean Corpuscular Volume 82.2, Mean Corpuscular Hemoglobin 28.6, Mean Corpuscular Hemoglobin Concent 34.8, Mean Platelet Volume 8.4, Neutrophils (%) (Auto) 68.7, Lymphocytes (%) (Auto) 19.9, Monocytes (%) (Auto) 8.1, Eosinophils (%) (Auto) 2.3, Basophils (%) (Auto) 0.2, Neutrophils # (Auto) 3.31, Lymphocytes # (Auto) 0.96, Monocytes # (Auto) 0.39, Eosinophils # (Auto) 0.11, Basophils # (Auto) 0.01 03/19/18 13:55 Test 03/19/18 13:54 03/19/18 13:55 03/19/18 14:44 03/19/18 15:00 Bedside Troponin I < 0.030 ng/ml (0-0.045) White Blood Count 4.82 K/uL (4.8-10.8) Red Blood Count 4.82 M/uL (4.7-6.1) Hemoglobin 13.8 g/dL (14.0-18.0) Hematocrit 39.6 % (42-52) Mean Corpuscular Volume 82.2 fL (80-100) Mean Corpuscular Hemoglobin 28.6 pg (25-34) Mean Corpuscular Hemoglobin Concent 34.8 g/dl (32-36) Platelet Count 217 K/uL (130-400) Mean Platelet Volume 8.4 fL (7.4-10.4) Neutrophils (%) (Auto) 68.7 % Lymphocytes (%) (Auto) 19.9 % Monocytes (%) (Auto) 8.1 % Eosinophils (%) (Auto) 2.3 % Basophils (%) (Auto) 0.2 % Neutrophils # (Auto) 3.31 K/uL (1.4-6.5) Lymphocytes # (Auto) 0.96 K/uL (1.2-3.4) Monocytes # (Auto) 0.39 K/uL (0.11-0.59) Eosinophils # (Auto) 0.11 K/uL (0-0.5) Basophils # (Auto) 0.01 K/uL (0-0.2) RDW Standard Deviation 43.4 fL (36.4-46.3) RDW Coefficient of Variation 14.5 % (11.5-14.5) Immature Granulocyte % (Auto) 0.8 % Immature Granulocyte # (Auto) 0.04 K/uL (0.00-0.02) Anion Gap 7.0 mmol/L (3-11) Estimated GFR () 83.5 Estimated GFR (Non- 72.0 BUN/Creatinine Ratio 19.5 (10-20) Calcium Level 8.8 mg/dl (8.5-10.1) Magnesium Level 1.8 mg/dl (1.8-2.4) Total Bilirubin 0.7 mg/dl (0.2-1) Direct Bilirubin 0.2 mg/dl (0-0.2) Aspartate Amino Transf (AST/SGOT) 12 U/L (15-37) Alanine Aminotransferase (ALT/SGPT) 18 U/L (12-78) Alkaline Phosphatase 77 U/L (45-117) Total Protein 7.4 gm/dl (6.4-8.2) Albumin 3.1 gm/dl (3.4-5.0) Thyroid Stimulating Hormone (TSH) 1.910 uIu/ml (0.300-4.500) Free Thyroxine 1.16 ng/dl (0.80-1.60) Lyme Disease IgG Antibody NEG (NEG) Lyme Disease IgM Antibody NEG (NEG) Prothrombin Time 10.0 SECONDS (9.0-12.0) Prothromb Time International Ratio 1.0 (0.9-1.1) Activated Partial Thromboplast Time 30.5 SECONDS (21.0-31.0) Partial Thromboplastin Ratio 1.2 Urine Color YELLOW Urine Appearance CLOUDY (CLEAR) Urine pH 6.0 (4.5-7.5) Urine Specific [place] 1.016 (1.000-1.030) Urine Protein NEG (NEG) Urine Glucose (UA) NEG (NEG) Urine Ketones NEG (NEG) Urine Occult Blood NEG (NEG) Urine Nitrite NEG (NEG) Urine Bilirubin NEG (NEG) Urine Urobilinogen NEG (NEG) Urine Leukocyte Esterase NEG (NEG) Urine WBC (Auto) 1-5 /hpf (0-5) Urine RBC (Auto) 0-4 /hpf (0-4) Urine Hyaline Casts (Auto) 1-5 /lpf (0-5) Urine Epithelial Cells (Auto) 10-20 /lpf (0-5) Urine Bacteria (Auto) NEG (NEG) Laboratory results as reviewed by me. Medications Administered Medications (Trade) Dose Ordered Sig/Caryl Route Start Time Stop Time Status Last Admin Dose Admin Sodium Chloride 500 ml @ 999 mls/hr Q31M STAT IV 03/19/18 13:37 03/19/18 14:07 DC 03/19/18 13:37 999 MLS/HR Oxycodone HCl (Roxicodone Immediate Rel Tab) 5 mg NOW STAT PO 03/19/18 14:49 03/19/18 14:50 DC 03/19/18 15:07 5 MG ECG Per My Interpretation Indication: weakness Rate (beats per minute): 66 Rhythm: normal sinus Findings: other (no ST elevation, no PVCs) ED Course 1326: The patient was evaluated in room B9. A complete history and physical exam was performed. 1337: NSS 500 ml @ 999 mls/hr IV. 1448: I reevaluated the patient and he is asking for pain medication. 1449: Roxicodone Immediate Rel Tab 5 mg PO. 1527: I reevaluated the patient and discussed the test results with him. He does not want to stay in the hospital in the hospital and does not feel that weak. He will follow-up with his doctor, and I recommended referral to the polysomnography tech. I also discussed pain medications with him. He expressed understanding and agreement of the treatment plan. He will be discharged. Medical Decision This is an 82-year-old male who presents with muscle pain and joint pain with tactile fevers and generalized weakness. Differential diagnosis includes tickborne illness, Lyme disease, fibromyalgia, arthritis, dehydration. I did perform a limited focused review of portions of the patient's old chart on the electronic medical record. The patient has had no recent pertinent visits to this hospital. I did evaluate the patient as noted above. IV access was established. The patient was placed on a continuous monitoring analyst. I did order and personally review the patient's 12-lead EKG and chest and shoulder x-ray as described above. I did order and review the patient's blood work as noted in the electronic medical record. Lyme testing is negative. LFTs are unremarkable. His white blood cell count is not elevated. I did order a urine analysis which was unremarkable. I did treat patient with oxycodone and normal saline IV. I did reevaluate the patient. He states he feels better. I did discuss the test results with him. At this time the cause of his symptoms is unclear. I did offer admission for his weakness but he stated that he felt well enough and wanted to go home. He was advised to follow-up with his doctor and discuss referral to rheumatology for further evaluation. He was given a short prescription for oxycodone and given precautions regarding this medication. He was discharged in good condition. Medication Reconcilliation Current Medication List: was personally reviewed by me Blood Pressure Screening Patient's blood pressure: Elevated blood pressure Blood pressure disposition: Referred to PCP Impression Primary Impression: Polyarthralgia Additional Impressions: Generalized weakness Dehydration Scribe Attestation The scribe's documentation has been prepared under my direct and personally reviewed by me in its entirety. I confirm that the note above accurately reflects all work, treatment, procedures, and medical decision making performed by me. Departure Information Dispostion Home / Self-Care Referrals Marco Kim M.D. (PCP) Patient Instructions ED Joint Pain, ED Weakness [facility], My [facility] Additional Instructions You have been examined and treated today on an emergency basis only. This is not a substitute for, or an effort to provide, complete comprehensive medical care. It is impossible to recognize and treat all injuries or illnesses in a single emergency department visit. It is therefore important that you follow up closely with your physician. Call as soon as possible for an appointment. Return for worsening symptoms or if you develop rash, fever, vomiting, chest discomfort or any other concerning symptoms. Problem Qualifiers
== END 2018-03-19 15:35 | disposition home or self-care (01) ==
LOC: C.EDB 13:07
DX: M25.50 Pain in unspecified joint (principal); E86.0 Dehydration; R53.1 Weakness; Z87.891 Personal history of nicotine dependence; Z83.3 Family history of diabetes mellitus; Z82.49 Family history of ischemic heart disease and other diseases of the circulatory system; Z79.01 Long term (current) use of anticoagulants; Z79.84 Long term (current) use of oral hypoglycemic drugs; Z79.899 Other long term (current) drug therapy